=== PATIENT | female | born 1950 | race Caucasian/White ===

== ENCOUNTER 2017-04-19 00:37 | Observation (INO) | payer MEDICARE, OTHER ==
[2017-04-19 01:26] LABS: Anisocytosis Slight; Basophils % (A) 1 %; CH 24.3; CHCM 29.8; Eosinophils # (A) 0.3 k/uL (0-0.7); Eosinophils % (A) 6 %; HCT 34.5 % (34.0-46.0); HGB 10.3 gm/dL (11.4-16.0); Hypochromasia Marked; Luc % (Auto) 2; Lymphocytes # (A) 1.2 k/uL (1.0-4.8); Lymphocytes % (A) 26 %; MCH 24.4 pg (25.0-35.0); MCHC 29.8 g/dL (31.0-37.0); MCV 81.8 fL (80.0-100.0); Mean Platelet Volume 8.2; Monocytes # (A) 0.3 k/uL (0-1.0); Monocytes % (A) 7 %; Neutrophils # (A) 2.8 k/uL (1.3-7.7); Neutrophils % (A) 59 %; RBC 4.22 m/uL (3.80-5.40); RDW 17.1 % (11.5-15.5); WBC 4.8 k/uL (3.8-10.6); WBC (Perox) 5.13
[2017-04-19 01:35] LABS: Partial Thromboplastin Time 22.5 sec (22.0-30.0); Prothrombin Time 10.4 sec (9.0-12.0)
[2017-04-19] MEDS ORDERED: ALBUTEROL NEBULIZED 2.5 MG/3 ML INHALATION STA (01:37)
[2017-04-19 01:39] LABS: ALT 24 U/L (9-52); AST 21 U/L (14-36); Alkaline Phosphatase 98 U/L (38-126); Anion Gap 6 mmol/L; Blood Urea Nitrogen 17 mg/dL (7-17); Calcium 10.4 mg/dL (8.4-10.2); Carbon Dioxide 23 mmol/L (22-30); Chloride 112 mmol/L (98-107); Glucose 109 mg/dL (74-99); Non-African American GFR(MDRD) >60 (>60 ml/min/1.73 sqM); Potassium 4.7 mmol/L (3.5-5.1); Sodium 141 mmol/L (137-145); Total Bilirubin 0.4 mg/dL (0.2-1.3); Total Protein 6.1 g/dL (6.3-8.2)
[2017-04-19 01:42] LABS: Creatine Kinase 25 U/L (30-135)
--- NOTE | 2017-04-19 01:48 | XR ---
EXAMINATION TYPE: XR chest 1V portable DATE OF EXAM: 04/19/2017 COMPARISON: 07/04/2015 HISTORY: Short of breath TECHNIQUE: Single frontal view of the chest is obtained. FINDINGS: Heart and mediastinum are normal. Lungs are clear. Diaphragm is normal. There are chest le ads. Bony thorax is intact. IMPRESSION: Normal chest. No change. Old left rib fracture is noted.
[2017-04-19 01:56] LABS: Creatine Kinase MB 0.5 ng/mL (0.0-2.4); Troponin I <0.012 ng/mL (0.000-0.034)
--- NOTE | 2017-04-19 02:51 | ED ---
SOB HPI - General Chief Complaint: Shortness of Breath Stated Complaint: SOB Time Seen by Provider: 04/19/17 00:47 Source: patient, family Mode of arrival: EMS Limitations: physical limitation - History of Present Illness Initial Comments: This patient is a 66-year-old woman who presents to be valid for shortness of breath that is been getting progressively worse over the past 3 days. She states she is also having a nonproductive cough and noted some wheezing. Patient does relate that she has history of COPD. She states that her home medicines are not helping. Patient denies fever or chills. She denies sputum production. She has some chest tightness. There is no diaphoresis, nausea or vomiting. MD Complaint: shortness of breath, cough Onset/Timin -: days(s) Severity: moderate Consistency: constant Improves With: nothing Worsens With: nothing Known History Of: COPD - Related Data Home Medications Medication Instructions Recorded Confirmed Albuterol Nebulized [Ventolin 2.5 mg INHALATION RT-Q6H PRN 04/19/17 04/19/17 Nebulized] Apixaban [Eliquis] 5 mg PO BID 04/19/17 04/19/17 Furosemide [Lasix] 40 mg PO DAILY 04/19/17 04/19/17 Ipratropium/Albuterol Sulfate 2 puff INHALATION RT-DAILY PRN 04/19/17 04/19/17 [Combivent Respimat Inhaler] Lisinopril [Zestril] 20 mg PO DAILY 04/19/17 04/19/17 Previous Rx's Medication Instructions Recorded Budesonide-Formot 160-4.5 Mcg 2 puff INHALATION BID #1 inhaler 04/19/17 [Symbicort 160-4.5 Mcg Inhaler] Doxycycline Monohydrate [Monodox] 100 mg PO Q12HR #10 cap 04/19/17 predniSONE 10 mg PO DAILY #30 tab 04/19/17 Allergies Allergy/AdvReac Type Severity Reaction Status Date / Time erythromycin base Allergy Rash/Hives Verified 04/19/17 11:20 [Erythromycin Base] gentamicin [Gentamicin] Allergy Rash/Hives Verified 04/19/17 11:20 Penicillins Allergy Anaphylaxis Verified 04/19/17 11:20 Review of Systems ROS Statement: Those systems with pertinent positive or pertinent negative responses have been documented in the HPI. ROS Other: All systems not noted in ROS Statement are negative. Constitutional: Denies: fever, chills Respiratory: Reports: cough, dyspnea, wheezes. Denies: hemoptysis Cardiovascular: Denies: chest pain, palpitations, orthopnea, edema, syncope Gastrointestinal: Denies: abdominal pain, nausea, vomiting Genitourinary: Denies: dysuria, hematuria Musculoskeletal: Denies: back pain Skin: Denies: rash Neurological: Denies: headache, weakness, numbness Past Medical History Past Medical History: Asthma, Coronary Artery Disease (CAD), Chest Pain / Angina , GERD/Reflux, Hypertension, Hypertension, Neurologic Disorder, Osteoarthritis ( OA), Renal Disease, Thyroid Disorder Additional Past Medical History / Comment(s): anemia. vericose veins. pulmonary embolus, DVT. wounds reji legs with. perpheral neuropathy , back and bilat knee spurs History of Any Multi-Drug Resistant Organisms: None Reported Past Surgical History: Hernia Repair, Tonsillectomy, Tubal Ligation, Tubal Ligation Additional Past Surgical History / Comment(s): BLOOD CLOTS REMOVED FROM LEFT LEG Past Anesthesia/Blood Transfusion Reactions: No Reported Reaction Past Psychological History: Panic Disorder Smoking Status: Never smoker Past Alcohol Use History: None Reported Past Drug Use History: None Reported - Past Family History Mother Family Medical History: No Reported History Daughter(s) Family Medical History: Cancer Additional Family Medical History / Comment(s): cervical Son(s) Family Medical History: CVA/TIA General Exam Limitations: physical limitation General appearance: alert, in no apparent distress Head exam: Present: atraumatic, normocephalic Eye exam: Present: normal appearance. Absent: scleral icterus, conjunctival injection Neck exam: Present: normal inspection, full ROM Respiratory exam: Present: wheezes. Absent: respiratory distress, rales, rhonchi, stridor, decreased breath sounds, prolonged expiratory Cardiovascular Exam: Present: regular rate, normal rhythm, normal heart sounds. Absent: systolic murmur, diastolic murmur, rubs, gallop GI/Abdominal exam: Present: soft. Absent: distended, tenderness, guarding, rebound, rigid Extremities exam: Present: normal capillary refill, other (Patient has chronic lymphedema changes to the left lower extremity. No Homans sign. No palpable cord or tenderness, however the exam is limited). Absent: calf tenderness Back exam: Present: normal inspection. Absent: CVA tenderness (R), CVA tenderness (L) Neurological exam: Present: alert Skin exam: Present: warm, dry, intact, normal color. Absent: rash Course Vital Signs 04/19/17 04/19/17 04/19/17 00:45 01:51 EDT 02:00 Temperature 97.8 F 97.6 F Pulse Rate 71 66 Respiratory 26 H 20 24 Rate Blood Pressure 198/80 177/75 O2 Sat by Pulse 99 Oximetry 04/19/17 04/19/17 04/19/17 02:17 02:21 02:24 Temperature Pulse Rate 65 64 68 Respiratory 16 19 16 Rate Blood Pressure 182/75 O2 Sat by Pulse 99 Oximetry 04/19/17 03:39 Temperature Pulse Rate 68 Respiratory 18 Rate Blood Pressure 155/67 O2 Sat by Pulse 97 Oximetry Medical Decision Making - Medical Decision Making Patient's 66-year-old woman with COPD exacerbation. She does have chronic lymphedema of the left leg. Patient be admitted for treatment of COPD and also to have VQ scan to rule out a pulmonary embolus. The patient is currently taking eliquis. - Lab Data Result diagrams: 04/19/17 00:56 04/19/17 00:56 Lab Results 04/19/17 04/19/17 04/19/17 Range/Units 00:56 00:56 00:56 WBC 4.8 (3.8-10.6) k/uL RBC 4.22 (3.80-5.40) m/uL Hgb 10.3 L (11.4-16.0) gm/dL Hct 34.5 (34.0-46.0) % MCV 81.8 (80.0-100.0) fL MCH 24.4 L (25.0-35.0) pg MCHC 29.8 L (31.0-37.0) g/dL RDW 17.1 H (11.5-15.5) % Plt Count 155 (150-450) k/uL Neutrophils % 59 % Lymphocytes % 26 % Monocytes % 7 % Eosinophils % 6 % Basophils % 1 % Neutrophils # 2.8 (1.3-7.7) k/uL Lymphocytes # 1.2 (1.0-4.8) k/uL Monocytes # 0.3 (0-1.0) k/uL Eosinophils # 0.3 (0-0.7) k/uL Basophils # 0.0 (0-0.2) k/uL Hypochromasia Marked Anisocytosis Slight PT (9.0-12.0) sec INR (<1.2) APTT (22.0-30.0) sec Sodium 141 (137-145) mmol/L Potassium 4.7 (3.5-5.1) mmol/L Chloride 112 H (98-107) mmol/L Carbon Dioxide 23 (22-30) mmol/L Anion Gap 6 mmol/L BUN 17 (7-17) mg/dL Creatinine 0.90 (0.52-1.04) mg/dL Est GFR (MDRD) Af Amer >60 (>60 ml/min/1.73 sqM) Est GFR (MDRD) Non-Af >60 (>60 ml/min/1.73 sqM) Glucose 109 H (74-99) mg/dL Calcium 10.4 H (8.4-10.2) mg/dL Total Bilirubin 0.4 (0.2-1.3) mg/dL AST 21 (14-36) U/L ALT 24 (9-52) U/L Alkaline Phosphatase 98 (38-126) U/L Total Creatine Kinase 25 L (30-135) U/L CK-MB (CK-2) 0.5 (0.0-2.4) ng/mL CK-MB (CK-2) Rel Index 2.0 Troponin I <0.012 (0.000-0.034) ng/mL NT-Pro-B Natriuret Pep pg/mL Total Protein 6.1 L (6.3-8.2) g/dL Albumin 3.3 L (3.5-5.0) g/dL 04/19/17 04/19/17 Range/Units 00:56 00:56 WBC (3.8-10.6) k/uL RBC (3.80-5.40) m/uL Hgb (11.4-16.0) gm/dL Hct (34.0-46.0) % MCV (80.0-100.0) fL MCH (25.0-35.0) pg MCHC (31.0-37.0) g/dL RDW (11.5-15.5) % Plt Count (150-450) k/uL Neutrophils % % Lymphocytes % % Monocytes % % Eosinophils % % Basophils % % Neutrophils # (1.3-7.7) k/uL Lymphocytes # (1.0-4.8) k/uL Monocytes # (0-1.0) k/uL Eosinophils # (0-0.7) k/uL Basophils # (0-0.2) k/uL Hypochromasia Anisocytosis PT 10.4 (9.0-12.0) sec INR 1.0 (<1.2) APTT 22.5 (22.0-30.0) sec Sodium (137-145) mmol/L Potassium (3.5-5.1) mmol/L Chloride (98-107) mmol/L Carbon Dioxide (22-30) mmol/L Anion Gap mmol/L BUN (7-17) mg/dL Creatinine (0.52-1.04) mg/dL Est GFR (MDRD) Af Amer (>60 ml/min/1.73 sqM) Est GFR (MDRD) Non-Af (>60 ml/min/1.73 sqM) Glucose (74-99) mg/dL Calcium (8.4-10.2) mg/dL Total Bilirubin (0.2-1.3) mg/dL AST (14-36) U/L ALT (9-52) U/L Alkaline Phosphatase (38-126) U/L Total Creatine Kinase (30-135) U/L CK-MB (CK-2) (0.0-2.4) ng/mL CK-MB (CK-2) Rel Index Troponin I (0.000-0.034) ng/mL NT-Pro-B Natriuret Pep 386 pg/mL Total Protein (6.3-8.2) g/dL Albumin (3.5-5.0) g/dL Disposition Clinical Impression: Acute exacerbation of chronic obstructive airways disease, Shortness of breath , Lymphedema Disposition: ADMITTED IP TO THIS HOSP Condition: Fair
[2017-04-19] MEDS ORDERED: MORPHINE SULFATE 2 MG/ML SYRINGE IV STA (03:13)
[2017-04-19 04:08] VITALS: BMI 55.7
[2017-04-19 07:12] VITALS: BP 138/63; RESP 20; TEMP 97.5
[2017-04-19] MEDS ORDERED: LISINOPRIL 20 MG TAB PO SCH (09:00)
[2017-04-19] MEDS ORDERED: predniSONE 20 MG TAB PO SCH (09:00)
[2017-04-19] MEDS ORDERED: FUROSEMIDE 40 MG TAB PO SCH (09:00)
[2017-04-19] MEDS ORDERED: APIXABAN 5 MG TAB PO SCH (09:00)
--- NOTE | 2017-04-19 09:04 | NM ---
EXAMINATION TYPE: NM pul vent and perfuse DATE OF EXAM: 04/19/2017 COMPARISON: Chest x-ray dated 04/19/2017. HISTORY: Shortness of breath. TECHNIQUE: Utilizing inhalation of 73.2 mCi Tc 99m DTPA aerosol and intravenous injection of 5.3 mCi of Tc 99m MAA, ventilation and perfusion images are acquired post injection in multiple projections. FINDINGS: There are matched defects in the upper lobes bilaterally. There are no VQ mismatches. IMPRESSION: THIS EXAMINATION IS LOW PROBABILITY FOR PULMONARY EMBOLUS.
[2017-04-19] MEDS: IPRATROPIUM-ALBUTEROL 3 ML NEB INHALATION SCH ×2 (09:15→12:12)
--- NOTE | 2017-04-19 11:14 | P.HPIM ---
History of Present Illness Patient history of COPD uses 2 L of onset at home came in with compensative shortness of breath which or 3 days ago. With nonproductive cough chest x-ray did not show any pneumonic process patient is otherwise clinically doing well patient has a left lower limb lymphedema chronic for which patient has an Billy bandage it doesn't appear to be infected. Patient denied any fever chills patient chest x-ray did not show any pneumonic process. Patient the is clinically doing well saturating well almost 100% on 2 L at rest. Patient will be discharged on weaning dose of prednisone, Symbicort along with alcohol withdrawal ipratropium she already has at home. Patient will be given prescription for doxycycline as well. Review of Systems REVIEW OF SYSTEMS: CONSTITUTIONAL: No fever, no malaise, no fatigue. HEENT: No recent visual problems or hearing problems. Denied any sore throat. CARDIOVASCULAR: No chest pain, orthopnea, PND, no palpitations, no syncope. PULMONARY: no hemoptysis. GASTROINTESTINAL: No diarrhea, no nausea, no vomiting, no abdominal pain. Normoactive bowel sounds. NEUROLOGICAL: No headaches, no weakness, no numbness. HEMATOLOGICAL: Denies any bleeding or petechiae. GENITOURINARY: Denies any burning micturition, frequency, or urgency. MUSCULOSKELETAL/RHEUMATOLOGICAL: Denies any joint pain, swelling, or any muscle pain. ENDOCRINE: Denies any polyuria or polydipsia. The rest of the 14-point review of systems is negative. Past Medical History Past Medical History: Asthma, Coronary Artery Disease (CAD), Chest Pain / Angina , GERD/Reflux, Hypertension, Hypertension, Neurologic Disorder, Osteoarthritis ( OA), Renal Disease, Thyroid Disorder Additional Past Medical History / Comment(s): anemia. vericose veins. pulmonary embolus, DVT. wounds reji legs with. perpheral neuropathy , back and bilat knee spurs History of Any Multi-Drug Resistant Organisms: None Reported Past Surgical History: Hernia Repair, Tonsillectomy, Tubal Ligation, Tubal Ligation Additional Past Surgical History / Comment(s): BLOOD CLOTS REMOVED FROM LEFT LEG Past Anesthesia/Blood Transfusion Reactions: No Reported Reaction Past Psychological History: Panic Disorder Smoking Status: Never smoker Past Alcohol Use History: None Reported Past Drug Use History: None Reported - Past Family History Mother Family Medical History: No Reported History Daughter(s) Family Medical History: Cancer Additional Family Medical History / Comment(s): cervical Son(s) Family Medical History: CVA/TIA Medications and Allergies Home Medications Medication Instructions Recorded Confirmed Type Albuterol Nebulized [Ventolin 2.5 mg INHALATION PRN 04/19/17 History Nebulized] Apixaban [Eliquis] 5 mg PO DAILY 04/19/17 04/19/17 History Budesonide-Formot 160-4.5 Mcg 2 puff INHALATION BID #1 inhaler 04/19/17 Rx [Symbicort 160-4.5 Mcg Inhaler] Doxycycline Monohydrate [Monodox] 100 mg PO Q12HR #10 cap 04/19/17 Rx Furosemide [Lasix] 40 mg PO DAILY 04/19/17 04/19/17 History Ipratropium/Albuterol Sulfate 04/19/17 History [Combivent Respimat Inhaler] Lisinopril [Zestril] 20 mg PO DAILY 04/19/17 04/19/17 History predniSONE 10 mg PO DAILY #30 tab 04/19/17 Rx Allergies Allergy/AdvReac Type Severity Reaction Status Date / Time erythromycin base Allergy Rash/Hives Verified 04/19/17 00:45 [Erythromycin Base] gentamicin [Gentamicin] Allergy Rash/Hives Verified 04/19/17 00:45 Penicillins Allergy Anaphylaxis Verified 04/19/17 00:45 Physical Exam Vitals: Vital Signs Temp Pulse Pulse Resp BP BP Pulse Ox 04/19/17 09:54 68 20 04/19/17 09:24 70 04/19/17 09:17 66 100 04/19/17 07:00 97.5 F L 68 20 138/63 99 04/19/17 04:18 97.8 F 68 17 168/73 99 04/19/17 04:15 18 04/19/17 03:39 68 18 155/67 97 04/19/17 02:24 68 16 04/19/17 02:21 64 19 182/75 99 04/19/17 02:17 65 16 04/19/17 02:00 24 04/19/17 01:51 EDT 97.6 F 66 20 177/75 99 04/19/17 00:45 97.8 F 71 26 H 198/80 Intake and Output 04/18/17 04/19/17 04/19/17 23:59 06:59 14:59 Intake Total 10 Balance 10 Intake: IV 10 Invasive Line 1 10 Oral Other: Voiding Method Bedside Commode Weight PHYSICAL EXAMINATION: GENERAL: The patient is alert and oriented x3, not in any acute distress. Well developed, well nourished. HEENT: Pupils are round and equally reacting to light. EOMI. No scleral icterus. No conjunctival pallor. Normocephalic, atraumatic. No pharyngeal erythema. No thyromegaly. CARDIOVASCULAR: S1 and S2 present. No murmurs, rubs, or gallops. PULMONARY: Chest is clear to auscultation, no wheezing or crackles. ABDOMEN: Soft, nontender, nondistended, normoactive bowel sounds. No palpable organomegaly. MUSCULOSKELETAL: No joint swelling or deformity. EXTREMITIES: No cyanosis, clubbing, or pedal edema. NEUROLOGICAL: Gross neurological examination did not reveal any focal deficits. SKIN: No rashes. Results CBC & Chem 7: 04/19/17 00:56 04/19/17 00:56 Labs: Abnormal Lab Results - Last 24 Hours (Table) 04/19/17 04/19/17 04/19/17 Range/Units 00:56 00:56 00:56 Hgb 10.3 L (11.4-16.0) gm/dL MCH 24.4 L (25.0-35.0) pg MCHC 29.8 L (31.0-37.0) g/dL RDW 17.1 H (11.5-15.5) % Chloride 112 H (98-107) mmol/L Glucose 109 H (74-99) mg/dL Calcium 10.4 H (8.4-10.2) mg/dL Total Creatine Kinase 25 L (30-135) U/L Total Protein 6.1 L (6.3-8.2) g/dL Albumin 3.3 L (3.5-5.0) g/dL Thrombosis Risk Factor Assmnt - Choose All That Apply Each Factor Represents 1 point: Abnormal pulmonary function (COPD), Obesity ( BMI >25) Each Risk Factor Represents 2 Points: Age 61-74 years Each Risk Factor Represents 3 Points: History of DVT/PE Thrombosis Risk Factor Assessment Total Risk Factor Score: 7 Thrombosis Risk Factor Assessment Level: High Risk Assessment and Plan Plan: #COPD and asthma exacerbation patient has chronic hypercapnic respiratory failure secondary to COPD and the patient is clinically doing well saturating well can be discharged on oral steroids. She appears to have an anxiety episode rather than actual COPD exacerbation. #2 coronary artery disease #3 hypertension #4 hyperlipidemia #5 hypothyroidism #6 left lower limb chronic lymphedema because of which patient mostly stays at home. #7 history of PE for which patient is on anti-correlation which Will be continued as an gastroesophageal reflux disease Omission chronic medical problems patient will continued on home medications.
--- NOTE | 2017-04-19 11:15 | P.DS ---
Providers Date of admission: 04/19/17 02:47 Attending physician: Ruben Garcia Primary care physician: Gina Maciel [facility] Course: As mentioned in HPI Patient Condition at Discharge: Fair Plan - Discharge Summary New Discharge Prescriptions: New Budesonide-Formot 160-4.5 Mcg [Symbicort 160-4.5 Mcg Inhaler] 2 puff INHALATION BID #1 inhaler predniSONE 10 mg PO DAILY #30 tab Doxycycline Monohydrate [Monodox] 100 mg PO Q12HR #10 cap No Action Apixaban [Eliquis] 5 mg PO DAILY Lisinopril [Zestril] 20 mg PO DAILY Furosemide [Lasix] 40 mg PO DAILY Ipratropium/Albuterol Sulfate [Combivent Respimat Inhaler] Albuterol Nebulized [Ventolin Nebulized] 2.5 mg INHALATION PRN PRN Reason: Wheezing Discharge Medication List Albuterol Nebulized [Ventolin Nebulized] 2.5 mg INHALATION PRN 04/19/17 [History ] Apixaban [Eliquis] 5 mg PO DAILY 04/19/17 [History] Budesonide-Formot 160-4.5 Mcg [Symbicort 160-4.5 Mcg Inhaler] 2 puff INHALATION BID #1 inhaler 04/19/17 [Rx] Doxycycline Monohydrate [Monodox] 100 mg PO Q12HR #10 cap 04/19/17 [Rx] Furosemide [Lasix] 40 mg PO DAILY 04/19/17 [History] Ipratropium/Albuterol Sulfate [Combivent Respimat Inhaler] 04/19/17 [History] Lisinopril [Zestril] 20 mg PO DAILY 04/19/17 [History] predniSONE 10 mg PO DAILY #30 tab 04/19/17 [Rx] Follow up Appointment(s)/Referral(s): Gina Maciel MD [Primary Care Provider] - 3 Days Patient Instructions/Handouts: Doxycycline (By mouth), Prednisone (By mouth), Budesonide/Formoterol (By breathing), COPD (Chronic Obstructive Pulmonary Disease) (DC), Dyspnea (GEN), Hypertension (DC), Lymphedema (DC) Discharge Disposition: HOME SELF-CARE
[2017-04-19 12:23] VITALS: PULSE 66
== END 2017-04-19 13:15 | disposition home or self-care (01) ==
LOC: EC 00:37 → 5MS5E 02:47
PROVIDERS: ADMIT Hospitalist; ATTEND Hospitalist
DX: J44.1 Chronic obstructive pulmonary disease with (acute) exacerbation (principal); J45.901 Unspecified asthma with (acute) exacerbation; J96.12 Chronic respiratory failure with hypercapnia; I25.10 Atherosclerotic heart disease of native coronary artery without angina pectoris; I10 Essential (primary) hypertension; E78.5 Hyperlipidemia, unspecified; E03.9 Hypothyroidism, unspecified; I89.0 Lymphedema, not elsewhere classified; Z86.711 Personal history of pulmonary embolism; Z86.718 Personal history of other venous thrombosis and embolism; Z99.81 Dependence on supplemental oxygen; Z79.899 Other long term (current) drug therapy; Z79.01 Long term (current) use of anticoagulants; Z79.51 Long term (current) use of inhaled steroids; Z88.1 Allergy status to other antibiotic agents; Z88.0 Allergy status to penicillin; E66.9 Obesity, unspecified; Z68.43 Body mass index [BMI] 50.0-59.9, adult
CPT/HCPCS: 99285; 96374; 36415; 94640 ×2; 94760; 93005; 83880; 80053; 82550; 82553; 84484; 85025; 85610; 85730; 71010; 78582; G0378; A9540; A9567; J2270; J7512

== ENCOUNTER 2019-10-14 10:25 | Inpatient (IN) | payer MEDICARE, OTHER ==
[2019-10-14 12:44] LABS: Glucose,Whole Blood 103 mg/dL (75-99)
[2019-10-14 14:19] LABS: Anisocytosis Slight; Basophils % (A) 1 %; Eosinophils # (A) 0.1 k/uL (0-0.7); Eosinophils % (A) 2 %; HCT 31.2 % (34.0-46.0); HGB 9.3 gm/dL (11.4-16.0); Hypochromasia Marked; Lymphocytes # (A) 0.4 k/uL (1.0-4.8); Lymphocytes % (A) 8 %; MCH 24.6 pg (25.0-35.0); MCHC 29.9 g/dL (31.0-37.0); MCV 82.5 fL (80.0-100.0); Mean Platelet Volume 9.7; Monocytes # (A) 0.5 k/uL (0-1.0); Monocytes % (A) 9 %; Neutrophils # (A) 4.2 k/uL (1.3-7.7); Neutrophils % (A) 78 %; Platelet Count 119 k/uL (150-450); RBC 3.78 m/uL (3.80-5.40); RDW 17.4 % (11.5-15.5); WBC 5.4 k/uL (3.8-10.6)
[2019-10-14] MEDS ORDERED: hydrALAZINE HCL 20 MG/ML 1 ML VIAL IM PRN (14:22)
[2019-10-14] MEDS ORDERED: SODIUM CHLORIDE 0.9% 1,000 ML IV SCH (14:30)
[2019-10-14 14:32] LABS: Lactic Acid, Venous 0.7 mmol/L (0.7-2.0)
[2019-10-14 14:49] LABS: Potassium 3.3 mmol/L (3.5-5.1)
[2019-10-14 14:50] LABS: Albumin 2.2 g/dL (3.5-5.0); Calcium 9.7 mg/dL (8.4-10.2); Total Bilirubin 0.5 mg/dL (0.2-1.3); Total Protein 5.2 g/dL (6.3-8.2)
--- NOTE | 2019-10-14 14:50 | XR ---
EXAMINATION TYPE: XR chest 1V portable DATE OF EXAM: 10/14/2019 COMPARISON: 04/19/2017 HISTORY: Dyspnea TECHNIQUE: Single frontal view of the chest is obtained. FINDINGS: There is an enlarged cardiac mediastinal silhouette. No new focal consolidation, pleural e ffusion or pneumothorax. Linear minimal bibasilar atelectasis is seen. Old healed left rib fracture i s better visualized on the prior partially obscured by an overlying lead on today's exam. Low lung vo lumes are seen. IMPRESSION: Minimal bibasilar subsegmental atelectasis and low lung volumes. Otherwise no acute proc ess.
[2019-10-14] MEDS ORDERED: HEPARIN SODIUM,PORCINE 5,000 UNIT/ML 1 ML VIAL SQ SCH (16:00)
[2019-10-14 16:44] LABS: Glucose,Whole Blood 109 mg/dL (75-99)
[2019-10-14] MEDS: PANTOPRAZOLE 40 MG/10 ML VIAL IVP SCH (17:26)
[2019-10-14] MEDS: CEFEPIME 1 GM in SODIUM CHLORIDE 0.9% 50 ML IVPB SCH ×2 (17:27→22:05)
[2019-10-14 20:07] LABS: Glucose,Whole Blood 119 mg/dL (75-99)
[2019-10-14] MEDS: FUROSEMIDE 10 MG/ML 2 ML VIAL IV SCH (22:05)
[2019-10-14 23:31] LABS: Glucose,Whole Blood 106 mg/dL (75-99)
[2019-10-14 23:59] LABS: ABG Base Excess -3.3 mmol/L; ABG HCO3 21 mmol/L (21-25); ABG Oxygen Saturation 99.5 % (94-97); ABG PCO2 33 mmHg (35-45); ABG PH 7.42 (7.35-7.45); ABG PO2 167 mmHg (83-108); ABG TCO2 22 mmol/L (19-24); Allen Test Performed? Yes
[2019-10-15 00:46] LABS: Anisocytosis Slight; HCT 32.6 % (34.0-46.0); HGB 9.7 gm/dL (11.4-16.0); Hypochromasia Marked; MCH 24.4 pg (25.0-35.0); MCHC 29.7 g/dL (31.0-37.0); MCV 82.2 fL (80.0-100.0); Mean Platelet Volume 7.7; Platelet Count 116 k/uL (150-450); RBC 3.97 m/uL (3.80-5.40); RDW 17.3 % (11.5-15.5); WBC 5.7 k/uL (3.8-10.6)
[2019-10-15 00:47] LABS: Glucose,Whole Blood 104 mg/dL (75-99)
--- NOTE | 2019-10-15 00:49 | CT ---
EXAMINATION TYPE: CT brain wo con DATE OF EXAM: 10/15/2019 COMPARISON: 11/24/2012 HISTORY: rule out bleed CT DLP: 1213.4 mGycm Automated exposure control for dose reduction was used. Ventricles of normal size. There is no mass effect nor midline shift. There is no sign of intracrania l hemorrhage. Calvarium is intact. There is no evidence of cerebral edema. IMPRESSION: Negative unenhanced head CT scan. No change.
[2019-10-15] MEDS ORDERED: HEPARIN SODIUM,PORCINE 5,000 UNIT/ML 1 ML VIAL IV PRN (00:53)
[2019-10-15] MEDS ORDERED: HEPARIN SOD,PORK IN 0.45% NACL 25,000 UNIT in 0.45% NACL 1 250ML.BAG IV SCH (01:00)
[2019-10-15 01:01] LABS: Lactic Acid, Venous 0.9 mmol/L (0.7-2.0)
[2019-10-15 01:02] LABS: Albumin 2.5 g/dL (3.5-5.0); Calcium 10.2 mg/dL (8.4-10.2); Potassium 3.3 mmol/L (3.5-5.1); Total Bilirubin 0.6 mg/dL (0.2-1.3); Total Protein 5.6 g/dL (6.3-8.2)
[2019-10-15] MEDS: SODIUM CHLORIDE 0.9% 1,000 ML IV SCH (01:15)
[2019-10-15] MEDS ORDERED: SODIUM CHLORIDE 0.9% 500 ML 500 ML IV SCH (01:30)
[2019-10-15] MEDS: hydrALAZINE HCL 20 MG/ML 1 ML VIAL IVP PRN ×2 (02:46→09:46)
--- NOTE | 2019-10-15 06:03 | CONS ---
CONSULTATION DATE OF SERVICE: 10/14/2019 REASON FOR CONSULTATION: Left lower extremity cellulitis. HISTORY OF PRESENT ILLNESS: The patient is a 69-year-old female who was recently admitted at [facility]. The patient presented with left lower extremity swelling and redness. She was diagnosed with left lower extremity cellulitis. The patient was started on vancomycin and cefepime, vancomycin subsequently discontinued. She was continued on cefepime. The patient left leg swelling and redness improved. The patient was afebrile. White count was normal. However, the patient started having mental status changes. The patient remains to be pleasantly confused, unable to provide any history. Subsequently the patient has been transferred to [facility] to be evaluated by neurology service. I was asked to see the patient for continued followup left lower extremity cellulitis. Since presentation to the hospital, the patient has been afebrile. The patient did have a normal white count 5.4. The patient creatinine is 1.85. Troponin has been elevated. The patient remains to be slightly lethargic and is unable to provide any history. Most information has been obtained from review of the chart. REVIEW OF SYSTEMS: Could not be reliably obtained the positive points have been mentioned in HPI. PAST MEDICAL HISTORY: Coronary artery disease, gastroesophageal reflux disease, chronic lymphedema to left leg and cellulitis, hypertension, hyperlipidemia, osteoarthritis, hypothyroidism. PAST SURGICAL HISTORY: The past surgical history includes hernia repair, tonsillectomy, tubal ligation and blood clot removed from the left leg. SOCIAL HISTORY: No history of smoking, drinking or drug use. FAMILY HISTORY: Father history of CVA and TIA. ALLERGIES: Allergies to ERYTHROMYCIN, GENTAMICIN, PENICILLIN. However has tolerated cephalosporin without any problem. MEDICATIONS: Currently include the patient on: Cefepime 1 gram q.12 hours. She is on Lasix, heparin hydralazine, Protonix and IV fluid. PHYSICAL EXAMINATION: On examination, her blood pressure is 194/84 with a pulse of 101. Temperature 97.9. She is 96% on 3 L nasal cannula. General description is an elderly female lying in bed in no distress. No tachypnea or accessory muscle of respiration use. HEENT examination slight pallor. No scleral icterus. Oral mucous membranes dry. NECK: Trachea central. No thyromegaly. LUNGS unlabored breathing. Clear to auscultation anteriorly. No wheeze or crackles. HEART S1, S2. Regular rate and rhythm. No tenderness. EXTREMITIES: Left leg swelling persists though redness has improved. No open wound or any drainage. NEUROLOGIC: The patient remains to be lethargic. Orientation could not be determined. LABS: Hemoglobin 9.2, white count 5.4 with a BUN of 32, creatinine 1.85. Potassium 3.3. DIAGNOSTIC IMPRESSION AND PLAN: 1. Patient with acute left lower extremity cellulitis that seems to have shown clinical improvement on cefepime which will be continued. 2. Patient with acute mental status changes for which the patient has been not explained on any infectious etiology in this patient with no fever or elevated white count and cellulitis, improving. The patient UA and culture were negative at the other facility. PLAN: 1. Cefepime 1 gram q.12 hours to continue. 2. We will check a UA and cultures. 3. We will check CRP and sedimentation rate. 4. We will follow up on clinical condition and further adjust medication if needed. Thank you for this consultation. Will follow this patient along with you. MMODL / IJN: [id number] /
[2019-10-15 06:15] LABS: Anisocytosis Slight; Basophils % (A) 0 %; Eosinophils # (A) 0.1 k/uL (0-0.7); Eosinophils % (A) 2 %; HCT 33.2 % (34.0-46.0); Hypochromasia Marked; Lymphocytes # (A) 0.6 k/uL (1.0-4.8); Lymphocytes % (A) 13 %; MCH 24.7 pg (25.0-35.0); MCV 82.4 fL (80.0-100.0); Mean Platelet Volume 9.1; Monocytes # (A) 0.4 k/uL (0-1.0); Monocytes % (A) 9 %; Neutrophils # (A) 3.4 k/uL (1.3-7.7); Neutrophils % (A) 74 %; Platelet Count 120 k/uL (150-450); RBC 4.03 m/uL (3.80-5.40); RDW 16.9 % (11.5-15.5); WBC 4.6 k/uL (3.8-10.6)
[2019-10-15 06:37] LABS: Calcium 9.9 mg/dL (8.4-10.2); Potassium 3.3 mmol/L (3.5-5.1)
[2019-10-15 07:51] LABS: C Reactive Protein 186.9 mg/L (<10.0)
[2019-10-15 08:10] LABS: Erythrocyte Sedimentation Rate 92 mm/hr (0-20)
[2019-10-15] MEDS: FUROSEMIDE 10 MG/ML 2 ML VIAL IV SCH (08:28)
[2019-10-15] MEDS: PANTOPRAZOLE 40 MG/10 ML VIAL IVP SCH (08:28)
--- NOTE | 2019-10-15 10:27 | HP ---
HISTORY AND PHYSICAL 69-year-old white female who has been treated for cellulitis of the leg over at [facility], transferred over to the other hospital due to delirium and altered mental status and significant nature in which she would not wake up. She was mumbling over and over mumbling and semicomatose state. For neurologic evaluation, we were progress that would see her on the day of transfer 10/14/2019 and do not see any notes in the chart from her, however. The patient worsening respiratory status. Apparently may have been transferred to the ICU overnight. REVIEW OF SYSTEMS: 14 point review of systems unobtainable. PAST MEDICAL HISTORY: Coronary artery disease, GERD, chronic lymphedema of the left leg with severe cellulitis, hypertension, osteoarthritis, hypothyroidism, dyslipidemia. PAST SURGICAL HISTORY: She had tubal ligation. Tonsillectomy, hernia repair, blood clot from left leg. SOCIAL HISTORY: No smoking, drinking alcohol. FAMILY HISTORY: CVA and TIA. ALLERGIES: ERYTHROMYCIN, GENTAMICIN, PENICILLIN. She has tolerated cephalosporins and without any problems. MEDICINES: Lasix, Heparin, hydralazine, Protonix, cefepime. PHYSICAL EXAMINATION: VITAL SIGNS: Blood pressure is 190s over 80s, pulse 101, temperature 98.7, O2 96 on 3 L. GENERAL: Appears to be in some mild respiratory distress. HEENT some mild pallor. Trachea is central. No thyromegaly. LUNGS: Increase respiratory rate, mostly clear. HEART S1, S2. ABDOMEN is distended, obesity. NEUROLOGIC lethargic, alert, oriented x0. Mostly obtunded. Just mumbles words when asked questions. EXTREMITIES show left leg swelling persists. Redness is improving. She had minimal opening wound at the flexor surface of the left leg, but apparently that is healing. LABORATORY DATA: Hemoglobin is 9.2, white count 5.4, BUN 32, creatinine 1.85. CT scan is negative for any intracranial bleed. ASSESSMENT: 1. Delirium, altered mental status. Possible cerebrovascular accident. May need an MRI as CT scans are negative. Waiting for neurology recommendations. 2. Cellulitis. 3. Urinalysis, urine cultures are negative. Continue with cefepime. Wait for Neurology recommendations and pulmonology Dr. Hagen has taken over and get Infectious Disease consult. Prognosis extremely guarded. MMODL / IJN: [id number] /
[2019-10-15] MEDS ORDERED: FLUCONAZOLE IN NACL,ISO-OSM 100 MG in SALINE 1 50ML.BAG IVPB SCH (10:30)
--- NOTE | 2019-10-15 10:33 | US ---
EXAMINATION TYPE: US venous doppler duplex LE DATE OF EXAM: 10/15/2019 9:52 AM COMPARISON: Previous study dated 12/11/2011. CLINICAL HISTORY: R/O DVT. Poor historian. ICU patient. On heparin. SIDE PERFORMED: Bilateral TECHNIQUE: The lower extremity deep venous system is examined utilizing real time linear array sonog shakira with graded compression, doppler sonography and color-flow sonography. VESSELS IMAGED: External Iliac Vein (EIV) Common Femoral Vein Deep Femoral Vein Greater Saphenous Vein * Femoral Vein Popliteal Vein Small Saphenous Vein * Proximal Calf Veins (* superficial vessels) Limited visualized of bilateral legs due to body habitus and patient unable to move/position legs Right Leg: Negative for DVT Left Leg: Negative for DVT, Popliteal compressions not taken due to patient unable to tolerate and l imited visualization No popliteal fossa lesion is seen. IMPRESSION: LIMITED EXAMINATION DEMONSTRATING NO EVIDENCE OF DVT AT THIS TIME.
[2019-10-15 11:51] LABS: Glucose,Whole Blood 115 mg/dL (75-99)
[2019-10-15] MEDS ORDERED: hydrALAZINE HCL 20 MG/ML 1 ML VIAL IVP PRN (12:44)
[2019-10-15] MEDS ORDERED: POTASSIUM CHLORIDE 10 MEQ in WATER FOR INJECTION 1 100ML.BAG IVPB STA (13:46)
--- NOTE | 2019-10-15 13:46 | P.CNPUL ---
History of Present Illness Reason for consult: dyspnea, COPD, obstructive sleep apnea Chief complaint: Tachypnea/ altered mental status/ uncontrolled hypertension History of present illness: This is a 69-year-old female who was transferred from [facility] for neurology evaluation patient has been lethargic poorly responsive but able to maintain her airway with arterial blood gas shows adequate ventilation and oxygenation, patient has a chronic swelling of the left lower extremity likely cellulitis, she is covid 19 negative in other [place], due to poor mental status she underwent a computed tomography scan of the head which is negative for any acute changes has been transferred to the ICU this morning evaluated in the ICU patient was found to be awake but nonverbal and noncommunicative patient had intermittent facial movements, her oxygen saturation is stable on 2 L nasal cannula 93-94% her she is tachypneic respiratory rate is around mid 30s, blood pressure is running about 180- 200 systolic, she has been getting as needed hydralazine every 6 hourly 10 mg was seems not to be helping Review of Systems ROS unobtainable: due to mental status All systems: negative Past Medical History Past Medical History: Asthma, Coronary Artery Disease (CAD), Chest Pain / Angina, GERD/Reflux, Hypertension, Hypertension, Neurologic Disorder, Osteoarthritis (OA), Renal Disease, Thyroid Disorder Additional Past Medical History / Comment(s): anemia. vericose veins. pulmonary embolus, DVT. wounds reji legs with. perpheral neuropathy , back and bilat knee spurs History of Any Multi-Drug Resistant Organisms: None Reported Past Surgical History: Hernia Repair, Tonsillectomy, Tubal Ligation, Tubal Ligation Additional Past Surgical History / Comment(s): BLOOD CLOTS REMOVED FROM LEFT LEG Past Anesthesia/Blood Transfusion Reactions: No Reported Reaction Past Psychological History: Panic Disorder Smoking Status: Never smoker Past Alcohol Use History: None Reported Past Drug Use History: None Reported - Past Family History Mother Family Medical History: No Reported History Daughter(s) Family Medical History: Cancer Additional Family Medical History / Comment(s): cervical Son(s) Family Medical History: CVA/TIA Medications and Allergies Home Medications Medication Instructions Recorded Confirmed Type Unable To Assess [Unable to Assess] 10/14/19 10/14/19 History Allergies Allergy/AdvReac Type Severity Reaction Status Date / Time erythromycin base Allergy Rash/Hives Verified 10/14/19 13:46 [Erythromycin Base] gentamicin [Gentamicin] Allergy Rash/Hives Verified 10/14/19 13:46 Penicillins Allergy Anaphylaxis Verified 10/14/19 13:46 Physical Exam Vitals: Vital Signs Temp Pulse Pulse Resp BP BP Pulse Ox 10/15/19 13:00 102 H 29 H 183/79 98 10/15/19 12:00 97.9 F 98 30 H 190/75 97 10/15/19 11:00 102 H 33 H 177/63 94 L 10/15/19 10:00 105 H 31 H 187/87 96 10/15/19 09:30 105 H 30 H 180/84 95 10/15/19 09:00 97 32 H 185/73 95 10/15/19 08:30 98 34 H 184/79 94 L 10/15/19 08:00 98.1 F 98 41 H 186/75 94 L 10/15/19 06:30 107 H 31 H 173/70 96 10/15/19 06:00 101 H 25 H 170/72 96 10/15/19 05:30 96 26 H 171/74 96 10/15/19 05:00 94 34 H 162/77 96 10/15/19 04:30 98.5 F 93 26 H 146/64 95 10/15/19 04:00 90 41 H 172/77 94 L 10/15/19 03:30 98 32 H 188/84 96 10/15/19 03:00 94 24 182/88 95 10/15/19 02:50 96 38 H 182/88 95 10/15/19 02:40 98 31 H 182/88 94 L 10/15/19 02:30 105 H 37 H 174/93 94 L 10/15/19 02:20 100 29 H 174/93 95 10/15/19 02:10 105 H 44 H 174/93 94 L 10/15/19 02:00 105 H 44 H 170/73 93 L 10/15/19 01:50 110 H 36 H 170/73 93 L 10/15/19 01:40 110 H 35 H 170/73 93 L 10/15/19 01:30 103 H 25 H 169/77 96 10/15/19 01:20 104 H 30 H 169/77 96 10/15/19 01:10 101 H 112 H 34 H 169/77 96 10/15/19 01:00 117 H 20 159/82 95 10/15/19 00:50 97.8 F 121 H 45 H 159/82 96 10/15/19 00:46 34 H 10/14/19 22:28 97.9 F 101 H 40 H 194/84 96 10/14/19 16:30 97.4 F L 93 21 193/89 94 L 10/14/19 13:46 97.5 F L 93 24 177/92 96 Intake and Output 10/14/19 10/15/19 10/15/19 22:59 06:59 14:59 Intake Total 160 219.984 197.477 Output Total 925 1130 580 Balance -765 -910.016 -382.523 Intake: IV 140 Sodium Chloride 0.9% 1, 140 000 ml @ 20 mls/hr IV . Q24H [facility] Rx#:[id number] Intake, IV Titration 160 219.984 57.477 Amount Cefepime 1 gm In Sodium 100 Chloride 0.9% 50 ml @ 100 mls/hr IVPB Q12HR [facility] Rx #:[id number] Heparin Sod,Pork in 0.45% 39.984 57.477 NaCl 25,000 unit In 0.45 % NaCl 1 250ml.bag @ 7.35 UNITS/KG/HR 9.996 mls/hr IV .Q24H [facility] Rx#: [id number] Sodium Chloride 0.9% 1, 90 000 ml @ 20 mls/hr IV . Q24H [facility] Rx#:[id number] Sodium Chloride 0.9% 1, 60 000 ml @ 75 mls/hr IV . [id number] [facility] Rx#:[id number] Sodium Chloride 0.9% 500 90 ml 500 ml @ 20 mls/hr IV .Q24H [facility] Rx#:[id number] Output: Urine 925 1130 580 Other: Voiding Method Indwelling Catheter Indwelling Catheter Indwelling Catheter - Constitutional General appearance: disheveled, mild distress, morbidly obese - EENT Ears: bilateral: normal - Neck Neck: normal ROM Carotids: bilateral: upstroke normal - Respiratory Respiratory: bilateral: CTA - Cardiovascular Rhythm: regular Heart sounds: normal: S1, S2 - Gastrointestinal General gastrointestinal: normal bowel sounds, soft - Integumentary Left leg twice a size of right leg with chronic skin changes likely cellulitis - Musculoskeletal Musculoskeletal: generalized weakness Nonverbal and noncommunicative but awake flat affect eyes open Results - Laboratory Findings CBC and BMP: 10/15/19 05:44 10/15/19 05:44 ABG ABG pH 7.42 (7.35-7.45) 10/14/19 23:49 ABG pCO2 33 mmHg (35-45) L 10/14/19 23:49 ABG pO2 167 mmHg (83-108) H 10/14/19 23:49 ABG O2 Saturation 99.5 % (94-97) H 10/14/19 23:49 PT/INR, D-dimer D-Dimer 5.35 mg/L FEU (<0.60) H 10/14/19 13:56 Abnormal lab findings: Abnormal Labs 10/14/19 10/14/19 10/14/19 12:42 13:56 13:56 RBC 3.78 L Hgb 9.3 L Hct 31.2 L MCH 24.6 L MCHC 29.9 L RDW 17.4 H Plt Count 119 L Lymphocytes # 0.4 L ESR APTT D-Dimer ABG pCO2 ABG pO2 ABG O2 Saturation Sodium Potassium 3.3 L Chloride 116 H Carbon Dioxide BUN 62 H Creatinine 1.85 H Glucose 106 H POC Glucose (mg/dL) 103 H AST 12 L Troponin I C-Reactive Protein Total Protein 5.2 L Albumin 2.2 L TSH 10/14/19 10/14/19 10/14/19 13:56 13:56 13:56 RBC Hgb Hct MCH MCHC RDW Plt Count Lymphocytes # ESR APTT D-Dimer 5.35 H ABG pCO2 ABG pO2 ABG O2 Saturation Sodium Potassium Chloride Carbon Dioxide BUN Creatinine Glucose POC Glucose (mg/dL) AST Troponin I 0.250 H* C-Reactive Protein Total Protein Albumin TSH <0.015 L 10/14/19 10/14/19 10/14/19 16:42 18:13 19:55 RBC Hgb Hct MCH MCHC RDW Plt Count Lymphocytes # ESR APTT D-Dimer ABG pCO2 ABG pO2 ABG O2 Saturation Sodium Potassium Chloride Carbon Dioxide BUN Creatinine Glucose POC Glucose (mg/dL) 109 H 119 H AST Troponin I 0.250 H* C-Reactive Protein Total Protein Albumin TSH 10/14/19 10/14/19 10/15/19 23:29 23:49 00:11 RBC Hgb 9.7 L Hct 32.6 L MCH 24.4 L MCHC 29.7 L RDW 17.3 H Plt Count 116 L Lymphocytes # ESR APTT D-Dimer ABG pCO2 33 L ABG pO2 167 H ABG O2 Saturation 99.5 H Sodium Potassium Chloride Carbon Dioxide BUN Creatinine Glucose POC Glucose (mg/dL) 106 H AST Troponin I C-Reactive Protein Total Protein Albumin [facility] 10/15/19 10/15/19 10/15/19 00:11 00:45 05:44 RBC Hgb 10.0 L Hct 33.2 L MCH 24.7 L MCHC 30.0 L RDW 16.9 H Plt Count 120 L Lymphocytes # 0.6 L ESR 92 H APTT D-Dimer ABG pCO2 ABG pO2 ABG O2 Saturation Sodium 146 H Potassium 3.3 L Chloride 117 H Carbon Dioxide BUN 67 H Creatinine 1.94 H Glucose 103 H POC Glucose (mg/dL) 104 H AST 13 L Troponin I C-Reactive Protein Total Protein 5.6 L Albumin 2.5 L [facility] 10/15/19 10/15/19 10/15/19 05:44 05:44 11:50 RBC Hgb Hct MCH MCHC RDW Plt Count Lymphocytes # ESR APTT 33.9 H D-Dimer ABG pCO2 ABG pO2 ABG O2 Saturation Sodium 148 H Potassium 3.3 L Chloride 119 H Carbon Dioxide 21 L BUN 70 H Creatinine 2.04 H Glucose 111 H POC Glucose (mg/dL) 115 H AST Troponin I C-Reactive Protein 186.9 H Total Protein Albumin TSH - Diagnostic Findings Chest x-ray: report reviewed, image reviewed (Chest x-ray finding as noted above) Assessment and Plan Assessment: Uncontrolled malignant hypertension Hypertensive encephalopathy likely PRESS syndrome Left lower extremity cellulitis ultrasound has been done no DVT has been noted heparin has been changed to subcu Hypokalemia Coronary artery disease Chronic lymphedema of left leg Hypertension hypertensive cardiovascular disease Morbid obesity Plan: Continue broad-spectrum antibiotics As duplex ultrasound of the left lower extremity negative for DVT we'll change heparin to subcu We will initiate IV Cardene Need a central line Patient is being planned by neurology service for transfer to tertiary [facility] for MRI of the brain Time with Patient: Greater than 30
[2019-10-15] MEDS ORDERED: LORazepam 2 MG/ML INJ IV STA (14:18)
--- NOTE | 2019-10-15 14:51 | P.CRDCN ---
History of Present Illness Consult date: 10/15/19 Requesting physician: Narendra Zurita Chief complaint: Mental status changes History of present illness: This is a 69-year-old female with history of hypertension, hyperlipidemia, GERD, hypothyroidism, left leg cellulitis, patient initially was at [facility] where she presented with left lower extremity swelling and redness, she was diagnosed there with left lower extremity cellulitis. She was initiated on IV antibiotics and the left leg swelling and redness seemed to improve. She remained afebrile and her white blood cell count was normal. Patient was starting to have a changes in her mentation, and for this reason she was transferred here to [facility] for neurology service. She underwent a CAT scan of the brain which was negative for any acute changes over at [facility]. Patient continues to be confused, most of the history was obtained from the medical record. A cardiology consultation was requested for congestive heart failure. Chest x-ray showed minimal basilar subsegmental atelectasis and low lung volumes. No acute process noted. Repeat CAT scan of the brain performed here was negative. Venous duplex study of bilateral lower extremities was performed which did not reveal any evidence for DVT. Blood pressure 190/70, 182/70, heart rate 102, 98% on 3 L of oxygen. Blood cell count is normal, hemoglobin 10.0, platelet count 120. Sodium 148, potassium 3.3, chloride 119, CO2 21, BUN 70, creatinine 2.0. The BNP level was 12,000, TSH 0.015. Troponin 0.25, 0.25. Magnesium 2.0, donovan virus not detected. EKG shows a sinus tachycardia. Past Medical History Past Medical History: Asthma, Coronary Artery Disease (CAD), Chest Pain / Angina, GERD/Reflux, Hypertension, Hypertension, Neurologic Disorder, Osteo arthritis (OA), Renal Disease, Thyroid Disorder Additional Past Medical History / Comment(s): anemia. vericose veins. pulmonary embolus, DVT. wounds reji legs with. perpheral neuropathy , back and bilat knee spurs History of Any Multi-Drug Resistant Organisms: None Reported Past Surgical History: Hernia Repair, Tonsillectomy, Tubal Ligation, Tubal Ligation Additional Past Surgical History / Comment(s): BLOOD CLOTS REMOVED FROM LEFT LEG Past Anesthesia/Blood Transfusion Reactions: No Reported Reaction Past Psychological History: Panic Disorder Smoking Status: Never smoker Past Alcohol Use History: None Reported Past Drug Use History: None Reported - Past Family History Mother Family Medical History: No Reported History Daughter(s) Family Medical History: Cancer Additional Family Medical History / Comment(s): cervical Son(s) Family Medical History: CVA/TIA Medications and Allergies Home Medications Medication Instructions Recorded Confirmed Type Unable To Assess [Unable to Assess] 10/14/19 10/14/19 History Allergies Allergy/AdvReac Type Severity Reaction Status Date / Time erythromycin base Allergy Rash/Hives Verified 10/14/19 13:46 [Erythromycin Base] gentamicin [Gentamicin] Allergy Rash/Hives Verified 10/14/19 13:46 Penicillins Allergy Anaphylaxis Verified 10/14/19 13:46 Physical Exam Vitals: Vital Signs Temp Pulse Pulse Resp BP BP Pulse Ox 10/15/19 13:00 102 H 29 H 183/79 98 10/15/19 12:00 97.9 F 98 30 H 190/75 97 10/15/19 11:00 102 H 33 H 177/63 94 L 10/15/19 10:00 105 H 31 H 187/87 96 10/15/19 09:30 105 H 30 H 180/84 95 10/15/19 09:00 97 32 H 185/73 95 10/15/19 08:30 98 34 H 184/79 94 L 10/15/19 08:00 98.1 F 98 41 H 186/75 94 L 10/15/19 06:30 107 H 31 H 173/70 96 10/15/19 06:00 101 H 25 H 170/72 96 10/15/19 05:30 96 26 H 171/74 96 10/15/19 05:00 94 34 H 162/77 96 10/15/19 04:30 98.5 F 93 26 H 146/64 95 10/15/19 04:00 90 41 H 172/77 94 L 10/15/19 03:30 98 32 H 188/84 96 10/15/19 03:00 94 24 182/88 95 10/15/19 02:50 96 38 H 182/88 95 10/15/19 02:40 98 31 H 182/88 94 L 10/15/19 02:30 105 H 37 H 174/93 94 L 10/15/19 02:20 100 29 H 174/93 95 10/15/19 02:10 105 H 44 H 174/93 94 L 10/15/19 02:00 105 H 44 H 170/73 93 L 10/15/19 01:50 110 H 36 H 170/73 93 L 10/15/19 01:40 110 H 35 H 170/73 93 L 10/15/19 01:30 103 H 25 H 169/77 96 10/15/19 01:20 104 H 30 H 169/77 96 10/15/19 01:10 101 H 112 H 34 H 169/77 96 10/15/19 01:00 117 H 20 159/82 95 10/15/19 00:50 97.8 F 121 H 45 H 159/82 96 10/15/19 00:46 34 H 10/14/19 22:28 97.9 F 101 H 40 H 194/84 96 10/14/19 16:30 97.4 F L 93 21 193/89 94 L Intake and Output 10/14/19 10/15/19 10/15/19 22:59 06:59 14:59 Intake Total 160 219.984 197.477 Output Total 925 1130 580 Balance -765 -910.016 -382.523 Intake: IV 140 Sodium Chloride 0.9% 1, 140 000 ml @ 20 mls/hr IV . Q24H [facility] Rx#:[id number] Intake, IV Titration 160 219.984 57.477 Amount Cefepime 1 gm In Sodium 100 Chloride 0.9% 50 ml @ 100 mls/hr IVPB Q12HR [facility] Rx #:[id number] Heparin Sod,Pork in 0.45% 39.984 57.477 NaCl 25,000 unit In 0.45 % NaCl 1 250ml.bag @ 7.35 UNITS/KG/HR 9.996 mls/hr IV .Q24H [facility] Rx#: [id number] Sodium Chloride 0.9% 1, 90 000 ml @ 20 mls/hr IV . Q24H [facility] Rx#:[id number] Sodium Chloride 0.9% 1, 60 000 ml @ 75 mls/hr IV . [id number] [facility] Rx#:[id number] Sodium Chloride 0.9% 500 90 ml 500 ml @ 20 mls/hr IV .Q24H [facility] Rx#:[id number] Output: Urine 925 1130 580 Other: Voiding Method Indwelling Catheter Indwelling Catheter Indwelling Catheter PHYSICAL EXAMINATION: GENERAL: 69-year-old female, noncommunicative nonverbal HEENT: Head is atraumatic, normocephalic. Pupils equal, round. Sclera anicteric. Conjunctiva are clear. Mucous membranes of the mouth are moist. Neck is supple. There is no elevated jugular venous pressure. No carotid] bruit is heard. HEART EXAMINATION: Heart S1, S2 normal. No murmur or gallop heard. CHEST EXAMINATION: Lungs are clear to auscultation and precussion. No chest wall tenderness is noted on palpation or with deep breathing. ABDOMEN: Soft, nontender. Bowel sounds are heard. No organomegaly noted. EXTREMITIES:[ 1+ peripheral pulses with evidence of peripheral edema left leg greater than the right, chronic skin changes, evidence of redness and cellulitis . NEUROLOGIC [patient is awake, nonverbal, flat affect, eyes open Results 10/15/19 05:44 10/15/19 05:44 Cardiac Enzymes 10/14/19 10/14/19 10/14/19 Range/Units 13:56 13:56 18:13 AST 12 L (14-36) U/L Troponin I 0.250 H* 0.250 H* (0.000-0.034) ng/mL 10/15/19 Range/Units 00:11 AST 13 L (14-36) U/L Troponin I (0.000-0.034) ng/mL Coagulation 10/15/19 10/15/19 Range/Units 00:11 05:44 APTT 24.0 33.9 H (22.0-30.0) sec CBC 10/15/19 10/15/19 Range/Units 00:11 05:44 WBC 5.7 4.6 (3.8-10.6) k/uL RBC 3.97 4.03 (3.80-5.40) m/uL Hgb 9.7 L 10.0 L (11.4-16.0) gm/dL Hct 32.6 L 33.2 L (34.0-46.0) % Plt Count 116 L 120 L (150-450) k/uL Comprehensive Metabolic Panel 10/14/19 10/15/19 10/15/19 Range/Units 13:56 00:11 05:44 Sodium 144 146 H 148 H (137-145) mmol/L Potassium 3.3 L 3.3 L 3.3 L (3.5-5.1) mmol/L Chloride 116 H 117 H 119 H (98-107) mmol/L Carbon Dioxide 22 22 21 L (22-30) mmol/L BUN 62 H 67 H 70 H (7-17) mg/dL Creatinine 1.85 H 1.94 H 2.04 H (0.52-1.04) mg/dL Glucose 106 H 103 H 111 H (74-99) mg/dL Calcium 9.7 10.2 9.9 (8.4-10.2) mg/dL AST 12 L 13 L (14-36) U/L ALT 7 7 (4-34) U/L Alkaline Phosphatase 73 81 (38-126) U/L Total Protein 5.2 L 5.6 L (6.3-8.2) g/dL Albumin 2.2 L 2.5 L (3.5-5.0) g/dL Current Medications Generic Name Dose Route Start Last Admin Trade Name Freq PRN Reason Stop Dose Admin Furosemide 20 mg 10/14/19 21:00 10/15/19 08:28 Lasix IV 20 mg Q12HR [facility] Administration Heparin Sodium (Porcine) 5,000 unit 10/15/19 16:00 Heparin SQ Q8HR [facility] Hydralazine HCl 10 mg 10/15/19 12:44 10/15/19 13:11 Apresoline IVP 10 mg Q4HR PRN Administration Blood Pressure - High Cefepime HCl 1 gm/ Sodium 50 mls @ 100 mls/hr 10/14/19 14:45 10/14/19 22:05 Chloride IVPB 100 mls/hr Q12HR [facility] Administration Sodium Chloride 1,000 mls @ 20 mls/hr 10/15/19 01:15 10/15/19 01:15 Saline 0.9% IV 20 mls/hr .Q24H [facility] Administration Sodium Chloride 500 mls @ 20 mls/hr 10/15/19 01:30 10/15/19 05:21 Saline 0.9% IV 20 mls/hr .Q24H [facility] Administration Fluconazole/Sodium Chloride 50 mls @ 50 mls/hr 10/15/19 10:30 100 mg/ IV Solution IVPB DAILY [facility] Potassium Chloride 10 meq/ IV 100 mls @ 100 mls/hr 10/15/19 13:46 Solution IVPB 10/15/19 14:45 ONCE STA Valproic Acid 500 mg/ Sodium 105 mls @ 100 mls/hr 10/15/19 15:00 Chloride IVPB Q6H [facility] Pantoprazole Sodium 40 mg 10/14/19 14:30 10/15/19 08:28 Protonix IVP 40 mg DAILY [facility] Administration Intake and Output 10/14/19 10/15/19 10/15/19 22:59 06:59 14:59 Intake Total 160 219.984 197.477 Output Total 925 1130 580 Balance -765 -910.016 -382.523 Intake: IV 140 Sodium Chloride 0.9% 1, 140 000 ml @ 20 mls/hr IV . Q24H [facility] Rx#:[id number] Intake, IV Titration 160 219.984 57.477 Amount Cefepime 1 gm In Sodium 100 Chloride 0.9% 50 ml @ 100 mls/hr IVPB Q12HR [facility] Rx #:[id number] Heparin Sod,Pork in 0.45% 39.984 57.477 NaCl 25,000 unit In 0.45 % NaCl 1 250ml.bag @ 7.35 UNITS/KG/HR 9.996 mls/hr IV .Q24H [facility] Rx#: [id number] Sodium Chloride 0.9% 1, 90 000 ml @ 20 mls/hr IV . Q24H [facility] Rx#:[id number] Sodium Chloride 0.9% 1, 60 000 ml @ 75 mls/hr IV . [id number] [facility] Rx#:[id number] Sodium Chloride 0.9% 500 90 ml 500 ml @ 20 mls/hr IV .Q24H [facility] Rx#:[id number] Output: Urine 925 1130 580 Other: Voiding Method Indwelling Catheter Indwelling Catheter Indwelling Catheter 10/15/19 05:44 10/15/19 05:44 EKG Interpretations (text) EKG shows a sinus tachycardia Assessment and Plan Plan: Assessment and plan #1 left lower extremity cellulitis, no evidence of DVT in either lower extremity #2 uncontrolled hypertension #3 hypokalemia #4 morbid obesity #5 troponin abnormality, not consistent with acute coronary syndrome, no signi ficant rise and fall pattern #6 mental status changes, neurology following #6 congestive heart failure, LV function unknown Plan We will obtain an echocardiogram with Doppler study, continue current dose of IV Lasix. We will also start the patient on IV beta eduardo, once she is taking oral medications we will transition over to oral. TSH level was 0.015, to be addressed by primary. Monitor renal function. Further recommendations to follow. DNP note has been reviewed, I agree with a documented findings and plan of care. Patient was seen and examined.
[2019-10-15] MEDS ORDERED: VALPROATE SODIUM 500 MG in SODIUM CHLORIDE 0.9% 100 ML IVPB SCH (15:00)
--- NOTE | 2019-10-15 15:06 | P.PCN ---
Date of Procedure: 10/15/19 Preoperative Diagnosis: Malignant hypertension/hypertensive encephalopathy Postoperative Diagnosis: As above Procedure(s) Performed: Central line placement Anesthesia: local Surgeon: Darron Valdes Disposition: ICU Indications for Procedure: As above Operative Findings: As he has below Description of Procedure: Patient prepared and draped in a usual fashion using a modified surgery triple- lumen catheter was inserted into right femoral vein without difficulty postprocedure chest x-ray is pending
--- NOTE | 2019-10-15 15:16 | EEG ---
ELECTROENCEPHALOGRAM REPORT DATE OF SERVICE: 10/15/2019 HISTORY: This is a 69-year-old female who was transferred from an outside hospital due to worsening mentation. The patient was initially being treated for cellulitis of the leg. CT scan of the head was negative for any intracranial pathology. TECHNICAL REPORT: This is an inpatient EEG performed on the [employer] EEG monitor with electrodes placed according to the International 10-20 system and a single EKG channel. Simultaneous video EEG monitoring was performed. This EEG was reviewed in both longitudinal bipolar, common average referential and transverse montages. Photic stimulation was performed. The recording begins with generalized high to moderate amplitude spike and slow wave discharge intermixed with sharp and slow wave discharges occurring at 1-2 cycles per second. This is occurring primarily in a generalized fashion. Maximum negativity appears to be lateralized to the right and left frontal parietal head region. The background is slow consisting of mixed theta frequencies and at times slowing down to delta frequencies between 2-3 hertz. The recording through its entirety, even through photic stimulation continues with generalized sharp and slow wave discharges in a repetitive fashion consistent with electrographic status. A verbal order was given to the nurse in charge to administer Ativan 1 mg IV stat and valproic acid 500 mg stat. This patient is in the process of being transferred to a higher level of care for further neuro imaging studies. MMODL / IJN: [id number] / MTDD
[2019-10-15] MEDS ORDERED: niCARdipine 20 MG in SODIUM CHLORIDE 0.9% 192 ML IV SCH (15:30)
--- NOTE | 2019-10-15 15:39 | XR ---
EXAMINATION TYPE: XR chest 1V portable DATE OF EXAM: 10/15/2019 COMPARISON: Yesterday HISTORY: Check line placement TECHNIQUE: FINDINGS: There is a right jugular catheter with tip in the right atrium. No pneumothorax. There is c oarsening of the interstitial markings. Heart appears slightly enlarged. IMPRESSION: Coarse lung markings and mild pulmonary congestion is the same or increased compared to y esterday.
--- NOTE | 2019-10-15 15:51 | PN ---
PROGRESS NOTE 69-year-old white female transferred from [facility] for neurology consultation. She looks lethargic, unresponsive. She is mumbling words back and forth, trying to open her eyes. Blood gas shows adequate oxygenation, same as yesterday. Apparently they called A team because was in altered mental status but she is breathing the same as she did yesterday, just in some kind of encephalopathy versus CVA. She is noncommunicative, intermittent facial movements and mumbling. On 2 L her sats are 93-94, the same as yesterday. Blood pressure is running high, 180s to 200s systolic for which medicines have been ordered. Hydralazine has been given, not helping too much with her blood pressures. PAST MEDICAL HISTORY: As noted, coronary artery disease, GERD, lymphedema, osteoarthritis, hypothyroidism. She has not seen a doctor in many years. She remains in similar status as yesterday. Blood pressure is 170s over 80s. She remains on cefepime for cellulitis of the legs and lymphedema. She is lying unconscious in the bed on her back with increased respiratory distress. GI is soft. Lungs are mostly clear. Heart S1, S2. White count is 4.5, hemoglobin is 9.3, which is stable. Potassium is low at 3.3, will be replaced. Creatinine is 1.85, BUN is 62. TSH is less than 0.015. Troponin 0.25. The ABG shows pCO2 of 33, PO2 167, oxygenation on ABGs is 99. ASSESSMENT: 1. Uncontrolled malignant hypertension. 2. Hypertensive encephalopathy. Pulmonology thinks it could be posterior reversible encephalopathy syndrome. 3. Lower extremity cellulitis. 4. Hypokalemia. 5. Coronary artery disease. 6. Diastolic congestive heart failure. 7. Lymphedema. 8. Possible cellulitis of the legs. 9. Morbid obesity. 10.Probable sleep apnea. 11.Hypertensive cardiovascular disease. Remains on cefepime. Duplex ultrasounds are negative for DVT. We are going to possibly use some IV blood pressure medicines. Wait for Neurology for further evaluation. Await for recommendations. MMODL / IJN: [id number] /
[2019-10-15] MEDS ORDERED: METOPROLOL TARTRATE 5 MG/5 ML VIAL IVP SCH (16:00)
[2019-10-15] MEDS ORDERED: HEPARIN SODIUM,PORCINE 5,000 UNIT/ML 1 ML VIAL SQ SCH (16:00)
[2019-10-15 16:43] VITALS: BP 183/81; PULSE 112; RESP 38; TEMP 97.8
--- NOTE | 2019-10-15 19:13 | PN ---
PROGRESS NOTE DATE OF SERVICE: 10/15/2019 REASON FOR FOLLOWUP: Left lower extremity cellulitis. INTERVAL HISTORY: The patient has been transferred to the ICU because of her mental status changes. She was not being seen by Neurology yesterday and patient possibly in the process of getting transferred to a different facility. The patient remains to be lethargic and sleepy and is unable to provide any history. PHYSICAL EXAMINATION: On examination, her blood pressure is 183/79 with a pulse of 102, temperature 97.9. She is 98% on 2 L nasal cannula. General description is an elderly female lying in bed in no distress. Respiratory system: Unlabored breathing and is clear to auscultation anteriorly. Heart S1, S2. Regular rate and rhythm. Abdomen soft, no tenderness. Left leg did have some chronic swelling. No significant redness or any drainage was noticed. LABS: Hemoglobin is 10, white count 4.6, BUN of 70, creatinine 2.04. DIAGNOSTIC IMPRESSION AND PLAN: Patient with acute left lower extremity cellulitis for which the patient is currently on IV cefepime and the patient's cellulitis has shown clinical improvement. However, clinically, the patient did have a problem with mental status changes for which the patient is being transferred to another facility for neurology evaluation. Keep the patient on cefepime until the patient is evaluated by ID service at that facility. MMODL / IJN: [id number] /
--- NOTE | 2019-10-19 12:25 | CDI ---
Documentation Clarification Form Date: 10/19/19 From: Cheri Martinez Phone: If you have a question about this query, please contact Britta Oliveira, Test Conductor at [phone] between 8am and 5pm. Admit Date: 10/14/19 Discharge Date:10/15/19 Patient Name: Sandra Salazar Visit Number: [id number] ATTENTION: The Clinical Documentation Specialists (CDI) and [facility] Coding Staff appreciate your assistance in clarifying documentation. Please respond to the clarification below the line at the bottom and electronically sign. The CDI & [facility] Coding staff will review the response and follow-up if needed. Please note: Queries are made part of the Legal Health Record. If you have any questions, please contact the author of this message via ITS. Dear Dr. Zurita The patient presented with the following: delirium and uncontrolled malignant hypertension History/Risk Factors: Hypertensive cardiovascular disease, diastolic CHF, sleep apnea Clinical Indicators: Elevated blood pressure, hypertensive encephalopathy Vital Signs: 10/14/19 BP: 177/92, 193/89, 194/84; 10/15/19 BP: 169/77, 169/77, 169/77, 170/73, 170/73, 170/73, 174/93, 174/93, 174/93, 182/88, 182/88, 182/84, 172/77, 146/64 Vital Signs: T. 97.5, P. 93, R. 24 Treatment: IV Apresoline 10 mg q 6 hours then q 4 hours; IV Nicardipine 20mg Consults: Cardiology documented uncontrolled hypertension. In your professional opinion, can you please further clarify the uncontrolled malignant hypertension? Crisis Emergency Urgency Other, please specify Unable to determine MTDD
--- NOTE | 2019-10-23 13:48 | DS ---
DISCHARGE SUMMARY DATE ADMITTED: 10/14/2019. DISCHARGE DATE: 10/15/2019 He came to the hospital with altered mental status. Transferred from the other hospital in order to see a neurologist due to altered mental status and was possibly found to have status epilepticus and due to no neurology here over the weekend and 24 hour EEG monitoring. Discussed with the case with Neurology Dr. Dhillon and we transferred her down to home where then can do 24 hour EEG monitoring. Medications to be continued were per her recommendations that she was admitted with. She is stable with vital signs on discharge. We did what Dr. Dhillon recommended and we transferred her down. Please see further orders from Lauren Ross. NANCYL / IJN: [id number] /
--- NOTE | 2019-10-27 10:40 | CDI ---
Documentation Clarification Form Date: 10/27/19 From: Cheri Martinez Phone: If you have a question about this query, please contact Britta Oliveira Casting Inspector at [phone] between 8am and 5pm. Admit Date: 10/14/19 Discharge Date:10/15/19 Patient Name: Sandra Salazar Visit Number: [id number] ATTENTION: The Clinical Documentation Specialists (CDI) and [facility] Coding Staff appreciate your assistance in clarifying documentation. Please respond to the clarification below the line at the bottom and electronically sign. The CDI & [facility] Coding staff will review the response and follow-up if needed. Please note: Queries are made part of the Legal Health Record. If you have any questions, please contact the author of this message via ITS. Dear Dr. Zurita Thank you for signing your previous query. Please document a response before signing this query. The patient presented with the following: delirium and uncontrolled malignant hypertension History/Risk Factors: Hypertensive cardiovascular disease, diastolic CHF, sleep apnea Clinical Indicators: Elevated blood pressure, hypertensive encephalopathy Vital Signs: 10/14/19 BP: 177/92, 193/89, 194/84; 10/15/19 BP: 169/77, 169/77, 169/77, 170/73, 170/73, 170/73, 174/93, 174/93, 174/93, 182/88, 182/88, 182/84, 172/77, 146/64 Vital Signs: T. 97.5, P. 93, R. 24 Treatment: IV Apresoline 10 mg q 6 hours then q 4 hours; IV Nicardipine 20mg Consults: Cardiology documented uncontrolled hypertension. In your professional opinion, can you please further clarify the uncontrolled malignant hypertension? Crisis Emergency Urgency Other, please specify Unable to determine MTDD
== END 2019-10-15 16:30 | disposition short-term general hospital (02) | DRG 291 ==
LOC: 3SCARD 12:45 → 2SICU 10-15 00:24
PROVIDERS: ADMIT Family Medicine; ATTEND Family Medicine
PROC: 02H633Z Insertion of Infusion Device into Right Atrium, Percutaneous Approach (ICD-10-PCS; principal; 2019-10-14)
DX: I11.0 Hypertensive heart disease with heart failure (principal); I67.83 Posterior reversible encephalopathy syndrome; I67.4 Hypertensive encephalopathy; L03.116 Cellulitis of left lower limb; I50.32 Chronic diastolic (congestive) heart failure; E03.9 Hypothyroidism, unspecified; E66.01 Morbid (severe) obesity due to excess calories; E78.5 Hyperlipidemia, unspecified; E87.6 Hypokalemia; F41.0 Panic disorder [episodic paroxysmal anxiety]; Z11.59 Encounter for screening for other viral diseases; G47.33 Obstructive sleep apnea (adult) (pediatric); I25.10 Atherosclerotic heart disease of native coronary artery without angina pectoris; I89.0 Lymphedema, not elsewhere classified; J44.9 Chronic obstructive pulmonary disease, unspecified; K21.9 Gastro-esophageal reflux disease without esophagitis; M19.90 Unspecified osteoarthritis, unspecified site; G62.9 Polyneuropathy, unspecified; I83.90 Asymptomatic varicose veins of unspecified lower extremity; R79.89 Other specified abnormal findings of blood chemistry; Z98.51 Tubal ligation status; Z86.711 Personal history of pulmonary embolism; Z86.718 Personal history of other venous thrombosis and embolism; Z88.1 Allergy status to other antibiotic agents; Z88.0 Allergy status to penicillin; Z79.899 Other long term (current) drug therapy; Z82.3 Family history of stroke
CPT/HCPCS: 36600; 70450; 71045; 80048; 80053; 82140; 82533; 82607; 82805; 83605; 83735; 83880; 84443; 84484; 85025; 85027; 85379; 85652; 85730; 86140; 87070; 87075; 87086; 87205; 87635; 93970; 95816

== ENCOUNTER 2020-02-16 07:58 | Day surgery (SDC) | payer MEDICARE, OTHER ==
[2020-02-14 12:15] VITALS: BMI 48.2
[2020-02-16 08:42] VITALS: TEMP 97.6
[2020-02-16] MEDS ORDERED: LACTATED RINGERS 1,000 ML IV ONE (08:48)
[2020-02-16 08:55] LABS: Glucose,Whole Blood 101 mg/dL (75-99)
[2020-02-16] MEDS ORDERED: PROPOFOL 10 MG/ML 20 ML VIAL IV ONE (08:56)
[2020-02-16 09:31] VITALS: RESP 16
--- NOTE | 2020-02-16 09:31 | P.PCN ---
Date of Procedure: 02/16/20 Description of Procedure: BRIEF HISTORY: Patient is a 69-year-old female who presents for outpatient colonoscopy for evaluation of iron deficiency anemia. Patient denies any problems with her bowels. She is being treated by the hematology service for anemia. No prior colonoscopy. PROCEDURE PERFORMED: Colonoscopy with polypectomy. PREOPERATIVE DIAGNOSIS: Iron deficiency anemia, no prior colonoscopy. ESTIMATED BLOOD LOSS: Minimal. IV sedation per Anesthesia. PROCEDURE: After informed consent was obtained, the patient, was brought into the endoscopy unit. IV sedation was administered by Anesthesia under continuous monitoring. Digital rectal examination was normal. Initially the Olympus CF-190 flexible video colonoscope was then inserted in the rectum, gradually advanced into the cecum without any difficulty. Careful examination was performed as the scope was gradually being withdrawn. Ileocecal valve and the appendiceal orifice were visualized and appeared normal. Prep was excellent. Mucosa of the cecum, ascending colon, transverse colon, descending colon, sigmoid colon, and rectum appeared normal. The terminal ileum was intubated and appeared normal. 3 diminutive polyps measuring 2-3 mm in size removed from the transverse colon, descending colon and rectum with cold forcep polypectomy. A few scattered diverticula noted in the sigmoid colon. Retroflexion was performed in the rectum and no lesions were seen. The patient tolerated the procedure well. IMPRESSION: 3 diminutive polyps removed from the transverse colon, descending colon and rectum with cold forcep polypectomy. Mild sigmoid diverticulosis. Otherwise, normal-appearing colon from rectum to cecum and normal appearing terminal ileum. RECOMMENDATIONS: Findings of this examination were discussed with the patient. Okay to resume diet and medications. Would pathology from polypectomy. Would recommend repeat colonoscopy in 5 years pending pathology from polypectomy.
[2020-02-16 09:44] VITALS: BP 118/84; PULSE 77
== END 2020-02-16 10:06 | disposition home or self-care (01) ==
LOC: ORWHC2ENDO 07:58
PROVIDERS: ATTEND Internal Medicine
DX: D12.3 Benign neoplasm of transverse colon (principal); D12.4 Benign neoplasm of descending colon; K62.1 Rectal polyp; K57.30 Diverticulosis of large intestine without perforation or abscess without bleeding; D50.9 Iron deficiency anemia, unspecified; I89.0 Lymphedema, not elsewhere classified; I48.19 Other persistent atrial fibrillation; G92 Toxic encephalopathy; R53.1 Weakness; Z86.711 Personal history of pulmonary embolism; E11.9 Type 2 diabetes mellitus without complications; J45.40 Moderate persistent asthma, uncomplicated; G40.909 Epilepsy, unspecified, not intractable, without status epilepticus; E07.9 Disorder of thyroid, unspecified; I25.10 Atherosclerotic heart disease of native coronary artery without angina pectoris; I12.9 Hypertensive chronic kidney disease with stage 1 through stage 4 chronic kidney disease, or unspecified chronic kidney disease; E11.22 Type 2 diabetes mellitus with diabetic chronic kidney disease; N18.3 Chronic kidney disease, stage 3 (moderate); I50.30 Unspecified diastolic (congestive) heart failure; E04.9 Nontoxic goiter, unspecified; Z98.51 Tubal ligation status; Z98.890 Other specified postprocedural states; Z80.49 Family history of malignant neoplasm of other genital organs; Z86.718 Personal history of other venous thrombosis and embolism; Z90.721 Acquired absence of ovaries, unilateral; Z79.4 Long term (current) use of insulin; Z79.891 Long term (current) use of opiate analgesic; Z79.51 Long term (current) use of inhaled steroids; Z79.82 Long term (current) use of aspirin; Z99.81 Dependence on supplemental oxygen; Z79.899 Other long term (current) drug therapy; Z88.5 Allergy status to narcotic agent; Z88.0 Allergy status to penicillin; Z88.1 Allergy status to other antibiotic agents; Z88.8 Allergy status to other drugs, medicaments and biological substances; F41.9 Anxiety disorder, unspecified
CPT/HCPCS: 88305; 45380; J2704

== ENCOUNTER → 2022-03-14 | Outpatient (CLI) | payer MEDICARE, OTHER ==
--- NOTE | 2022-03-14 16:23 | NM ---
EXAMINATION TYPE: NM parathyroid DATE OF EXAM: 03/14/2022 COMPARISON: NONE HISTORY: Hypercalcemia TECHNIQUE: Following administration of 25.8 mCi Tc99m Sestamibi. Anterior projection images of the neck and ches t were obtained 10 minutes and 3 hours post injection, no SPECT imaging was performed due to patient' s inability to cooperate FINDINGS: Thyroid tracer washout: Delayed images demonstrate near-complete tracer washout from the thyroid. Parathyroid uptake: None. The delayed images do not demonstrate any focal abnormal persistent uptake in the region of the parathyroid glands to suggest parathyroid adenoma. Normal uptake: There is physiological tracer uptake in salivary glands and thyroid gland. IMPRESSION: Normal parathyroid imaging study. No evidence for mediastinal uptake to suggest mediastinal parathyro id adenoma
== END | disposition home or self-care (01) ==
LOC: RADNMMAIN 10:46
PROVIDERS: ATTEND Internal Medicine Nephrology
DX: E83.52 Hypercalcemia (principal)
CPT/HCPCS: 78070; A9500

== ENCOUNTER 2022-05-13 15:24 | Emergency (ER) | payer MEDICARE, OTHER ==
[2022-05-13 15:29] VITALS: TEMP 98.1
--- NOTE | 2022-05-13 16:02 | ED ---
General Adult HPI - General Chief complaint: Recheck/Abnormal Lab/Rx Stated complaint: abn labs, confusion Time Seen by Provider: 05/13/22 15:26 Source: patient, EMS Limitations: altered mental status - History of Present Illness Initial comments: Patient is a 71-year-old female who presents to emergency department apparently for laboratory abnormalities and possible confusion. Patient has a history of type 2 diabetes, COPD, postmenopausal bleeding no longer on blood thinners for her atrial fibrillation, chronic left lower extremity swelling and skin changes who presents emergency department for apparent hypernatremia at her outside facility. Patient is uncertain why she is here. She is alert and oriented 4. She has no acute complaints at this time. States it did mention something about laboratory studies being off. Does have a chronic indwelling Hager. Has no other acute complaints at this time. Denies chest pain, shortness of breath, fevers, chills, abdominal pain, nausea, vomiting, diarrhea. Since or further evaluation at this time. She is chronically on 2 L nasal cannula. - Related Data Home Medications Medication Instructions Recorded Confirmed Budesonide-Formot 160-4.5 Mcg 2 puff INHALATION RT-BID@0800,1700 02/14/20 05/13/22 [Symbicort 160-4.5 Mcg Inhaler] DULoxetine HCL [Cymbalta] 20 mg PO BID@0800,1700 02/14/20 05/13/22 Famotidine 20 mg PO DAILY@0800 02/14/20 05/13/22 Ferrous Sulfate [Feosol] 325 mg PO DAILY@0800 02/14/20 05/13/22 Folic Acid 1 mg PO DAILY@17002/14/20 05/13/22 Ipratropium-Albuterol Nebulize 3 ml INHALATION RT-Q6H PRN 02/14/20 05/13/22 [Duoneb 0.5 mg-3 mg/3 ml Soln] Lacosamide [Vimpat] 100 mg PO BID@0800,2100 02/14/20 05/13/22 Magnesium Hydroxide [Milk of 7,200 mg PO DAILY PRN 02/14/20 05/13/22 Magnesia Concentrate] Metoprolol Tartrate [Lopressor] 50 mg PO BID@0800,1700 02/14/20 05/13/22 Na Phos,M-B/Na Phos,Di-Ba [Fleet 133 ml RECTAL DAILY PRN 02/14/20 05/13/22 Adult] bisacodyL [Dulcolax] 10 mg RECTAL DAILY PRN 02/14/20 05/13/22 Acetaminophen with Codeine 2 tab PO Q6H PRN 05/13/22 05/13/22 [Acetaminophen-Cod #3 Tablet] Albuterol Sulfate [Proventil Hfa] 1 puff INHALATION RT-Q4H PRN 05/13/22 05/13/22 Albuterol Sulfate [Proventil Hfa] 2 puff INHALATION RT-Q6H 05/13/22 05/13/22 Ascorbic Acid [Vitamin C] 500 mg PO DAILY@0800 05/13/22 05/13/22 Atorvastatin Calcium 20 mg PO DAILY@1700 05/13/22 05/13/22 Cholecalciferol [Vitamin D3 (25 50 mcg PO BID@0800,1700 05/13/22 05/13/22 Mcg = 1000 Iu)] Cyanocobalamin (Vitamin B-12) 1,000 mcg PO DAILY@0800 05/13/22 05/13/22 [Vitamin B-12] INSULIN LISPRO (HumaLOG) [humaLOG] See Protocol SQ ACHS 05/13/22 05/13/22 Sodium Zirconium Cyclosilicate 10 gm PO DAILY@1700 05/13/22 05/13/22 [Lokelma] Zinc Gluconate [Zinc] 50 mg PO DAILY@1700 05/13/22 05/13/22 hydrALAZINE HCL [Apresoline] 25 mg PO BID@0800,2100 05/13/22 05/13/22 Previous Rx's Medication Instructions Recorded Sulfamethox-Tmp 800-160Mg [Bactrim 1 tab PO Q12HR 7 Days #14 tab 05/13/22 DS 800-160 mg] Allergies Allergy/AdvReac Type Severity Reaction Status Date / Time codeine Allergy Severe LESS Verified 04/11/20 10:11 [From Tylenol-Codeine #3] RESPONSIVE-SENT TO ER-METABOLIC ENCEPHALAPATHY. hydrocodone Allergy Unknown Unknown Verified 04/11/20 10:11 (taken from ECF list) tramadol [From Ultram] Allergy Unknown Unknown Verified 04/11/20 10:11 (taken from ECF list) erythromycin base Allergy Rash/Hives Verified 04/11/20 10:11 [Erythromycin Base] gentamicin [Gentamicin] Allergy Rash/Hives Verified 04/11/20 10:11 Penicillins Allergy Anaphylaxis Verified 04/11/20 10:11 NARCOTICS AdvReac Severe SENSITIVE Uncoded 04/11/20 10:11 TO NARCOTICS. SEDATIVES AdvReac Severe SENSITIVE Uncoded 04/11/20 10:11 TO SEDATIVES AND NARCOTICS Review of Systems ROS Statement: Those systems with pertinent positive or pertinent negative responses have been documented in the HPI. Review of Systems: CONST: Denies fever EYES: Denies blurry vision ENT: Denies nasal congestion C/V: Denies Chest pain RESP: Denies shortness of breath GI: Denies abdominal pain : Denies dysuria SKIN: Denies rash. MSK: Denies joint pain. NEURO: Denies headache ROS Other: All systems not noted in ROS Statement are negative. Past Medical History Past Medical History: Asthma, Coronary Artery Disease (CAD), Chest Pain / Angina, GERD/Reflux, Hypertension, Hypertension, Neurologic Disorder, Osteoarthritis (OA), Renal Disease, Thyroid Disorder Additional Past Medical History / Comment(s): anemia. vericose veins. pulmonary embolus, DVT. wounds reji legs with. perpheral neuropathy , back and bilat knee spurs History of Any Multi-Drug Resistant Organisms: None Reported Past Surgical History: Hernia Repair, Tonsillectomy, Tubal Ligation, Tubal Ligation Additional Past Surgical History / Comment(s): BLOOD CLOTS REMOVED FROM LEFT LEG Past Anesthesia/Blood Transfusion Reactions: No Reported Reaction Past Psychological History: Panic Disorder - Past Family History Mother Family Medical History: No Reported History Daughter(s) Family Medical History: Cancer Additional Family Medical History / Comment(s): cervical Son(s) Family Medical History: CVA/TIA General Exam - General Exam Comments Initial Comments: General: Appears in no acute distress. HEAD: Normal with no signs of head trauma. EYES: PERRLA, EOMI, conjunctiva normal, no discharge. ENT: Hearing grossly intact, normal oropharynx. RESPIRATORY: Clear breath sounds bilaterally. No wheezes, rales, or rhonchi. No hypoxia on her baseline 2 L nasal cannula. C/V: Irregular rate and rhythm. S1 and S2 auscultated, peripheral pulses 2+ and intact throughout ABD: Abd is soft, nontender, nondistended EXT: Range of motion of all 4 extremities. Patient has per patient chronic left lower extremity Swelling with chronic venous stasis changes. States is typical for her leg. No acute change. SKIN: Left lower extremity chronic skin changes with swelling. NEURO: Alert and oriented 4. No obvious sensory strength deficits. Patient is oriented to person, place, time, why she is here. Limitations: altered mental status Course Vital Signs 05/13/22 05/13/22 05/13/22 15:25 16:49 18:23 Temperature 98.1 F Pulse Rate 69 73 69 Respiratory 18 16 16 Rate Blood Pressure 134/86 138/62 138/92 O2 Sat by Pulse 100 98 97 Oximetry Medical Decision Making - Medical Decision Making Based on the patient's presentation and physical exam, we will obtain screening laboratory studies including checking her sodium level here in the department. We will recheck to the facility to ensure that her left lower extremity is within normal limits. It does not appear she is on any blood thinners at this time as she did have a recent admission to an outside hospital for anemia secondary to postmenopausal bleeding. It is uncertain if she is on her blood thinning medication but states that he may have stopped it. Only other acute complaint at this time is a slight cough. As she has been in the facility for multiple days, we will obtain Covid, flu swabs in addition to the basic laboratory studies. We will also obtain a chest x-ray and screening EKG at this time. Patient was in agreement this plan. We will send off a urine and she does have a chronic indwelling Hager catheter. Vital signs are within normal limits. EKG shows no signs of acute ischemia. It shows chronic atrial fibrillation with chronic left bundle-branch block.Chest x-ray as interpreted by myself reveals no obvious infiltrate. Possible mild pulmonary vascular congestion. Laboratory studies are remarkable for chronic anemia with hemoglobin of 9.2. Patient also has a chronic, cytopenia with a platelet count of 95. She is no longer on bl ood thinners. Patient is mildly hyponatremic to 146. She has an elevated BUN/creatinine at her baseline in the setting of CK D. Patient does have a UTI on urinalysis. Covid influenza negative. On reevaluation, patient's vital signs remained within acceptable limits. We will swab out her Hager catheter for a clean 1. She'll be started on Bactrim for UTI. I updated her and I believe it is safer to be discharged home as she is not altered. I did contact her nursing facility and spoke with the nurse automation test developer who is covering for her and they're in understanding was that she was sent for high sodium and that is all. I updated them on the patient's status and that she'll be transferred back to them. They were in agreement this plan. I will provide the patient with a prescription for Bactrim. I instructed the patient to follow up with their PCP in the next 1-3 days. I explained that the patient should return to the emergency department if they experience any worsening symptoms. Strict return precautions were discussed with the patient. The patient expressed understanding of these instructions. I answered all questions that the patient had. The patient was discharged home in good condition with their prescriptions and follow up information. - Lab Data Result diagrams: 05/13/22 16:28 05/13/22 16:28 Lab Results 05/13/22 05/13/22 05/13/22 Range/Units 16:28 16:28 16:28 WBC 4.8 (3.8-10.6) k/uL RBC 3.20 L (3.80-5.40) m/uL Hgb 9.2 L (11.4-16.0) gm/dL Hct 30.7 L (34.0-46.0) % MCV 95.9 (80.0-100.0) fL MCH 28.8 (25.0-35.0) pg MCHC 30.0 L (31.0-37.0) g/dL RDW 17.2 H (11.5-15.5) % Plt Count 95 L (150-450) k/uL MPV 9.3 Neutrophils % 70 % Lymphocytes % 20 % Monocytes % 5 % Eosinophils % 2 % Basophils % 1 % Neutrophils # 3.4 (1.3-7.7) k/uL Lymphocytes # 1.0 (1.0-4.8) k/uL Monocytes # 0.2 (0-1.0) k/uL Eosinophils # 0.1 (0-0.7) k/uL Basophils # 0.1 (0-0.2) k/uL Hypochromasia Marked Anisocytosis Slight PT 10.1 (9.0-12.0) sec INR 0.9 (<1.2) APTT 22.4 (22.0-30.0) sec Sodium 146 H (137-145) mmol/L Potassium 3.6 (3.5-5.1) mmol/L Chloride 115 H (98-107) mmol/L Carbon Dioxide 30 (22-30) mmol/L Anion Gap 1 mmol/L BUN 46 H (7-17) mg/dL Creatinine 1.98 H (0.52-1.04) mg/dL Est GFR (CKD-EPI)AfAm 29 (>60 ml/min/1.73 sqM) Est GFR (CKD-EPI)NonAf 25 (>60 ml/min/1.73 sqM) Glucose 99 (74-99) mg/dL Plasma Lactic Acid Rc (0.7-2.0) mmol/L Calcium 10.2 (8.4-10.2) mg/dL Total Bilirubin 0.4 (0.2-1.3) mg/dL AST 24 (14-36) U/L ALT 21 (4-34) U/L Alkaline Phosphatase 164 H (38-126) U/L Total Protein 4.8 L (6.3-8.2) g/dL Albumin 2.6 L (3.5-5.0) g/dL Amylase 46 (30-110) U/L Lipase 57 (23-300) U/L Urine Color Urine Appearance (Clear) Urine pH (5.0-8.0) Ur Specific [place] (1.001-1.035) Urine Protein (Negative) Urine Glucose (UA) (Negative) Urine Ketones (Negative) Urine Blood (Negative) Urine Nitrite (Negative) Urine Bilirubin (Negative) Urine Urobilinogen (<2.0) mg/dL Ur Leukocyte Esterase (Negative) Urine RBC (0-5) /hpf Urine WBC (0-5) /hpf Urine WBC Clumps (None) /hpf Amorphous Sediment (None) /hpf Urine Bacteria (None) /hpf Hyaline Casts (0-2) /lpf Urine Mucus (None) /hpf Coronavirus (PCR) (Not Detectd) Influenza Type A RNA (Not Detectd) Influenza Type B (PCR) (Not Detectd) 05/13/22 05/13/22 05/13/22 Range/Units 16:28 16:46 16:46 WBC (3.8-10.6) k/uL RBC (3.80-5.40) m/uL Hgb (11.4-16.0) gm/dL Hct (34.0-46.0) % MCV (80.0-100.0) fL MCH (25.0-35.0) pg MCHC (31.0-37.0) g/dL RDW (11.5-15.5) % Plt Count (150-450) k/uL MPV Neutrophils % % Lymphocytes % % Monocytes % % Eosinophils % % Basophils % % Neutrophils # (1.3-7.7) k/uL Lymphocytes # (1.0-4.8) k/uL Monocytes # (0-1.0) k/uL Eosinophils # (0-0.7) k/uL Basophils # (0-0.2) k/uL Hypochromasia Anisocytosis PT (9.0-12.0) sec INR (<1.2) APTT (22.0-30.0) sec Sodium (137-145) mmol/L Potassium (3.5-5.1) mmol/L Chloride (98-107) mmol/L Carbon Dioxide (22-30) mmol/L Anion Gap mmol/L BUN (7-17) mg/dL Creatinine (0.52-1.04) mg/dL Est GFR (CKD-EPI)AfAm (>60 ml/min/1.73 sqM) Est GFR (CKD-EPI)NonAf (>60 ml/min/1.73 sqM) Glucose (74-99) mg/dL Plasma Lactic Acid Rc 0.7 (0.7-2.0) mmol/L Calcium (8.4-10.2) mg/dL Total Bilirubin (0.2-1.3) mg/dL AST (14-36) U/L ALT (4-34) U/L Alkaline Phosphatase (38-126) U/L Total Protein (6.3-8.2) g/dL Albumin (3.5-5.0) g/dL Amylase (30-110) U/L Lipase (23-300) U/L Urine Color Urine Appearance (Clear) Urine pH (5.0-8.0) Ur Specific [place] (1.001-1.035) Urine Protein (Negative) Urine Glucose (UA) (Negative) Urine Ketones (Negative) Urine Blood (Negative) Urine Nitrite (Negative) Urine Bilirubin (Negative) Urine Urobilinogen (<2.0) mg/dL Ur Leukocyte Esterase (Negative) Urine RBC (0-5) /hpf Urine WBC (0-5) /hpf Urine WBC Clumps (None) /hpf Amorphous Sediment (None) /hpf Urine Bacteria (None) /hpf Hyaline Casts (0-2) /lpf Urine Mucus (None) /hpf Coronavirus (PCR) Not Detected (Not Detectd) Influenza Type A RNA Not Detected (Not Detectd) Influenza Type B (PCR) Not Detected (Not Detectd) 05/13/22 Range/Units 17:34 WBC (3.8-10.6) k/uL RBC (3.80-5.40) m/uL Hgb (11.4-16.0) gm/dL Hct (34.0-46.0) % MCV (80.0-100.0) fL MCH (25.0-35.0) pg MCHC (31.0-37.0) g/dL RDW (11.5-15.5) % Plt Count (150-450) k/uL MPV Neutrophils % % Lymphocytes % % Monocytes % % Eosinophils % % Basophils % % Neutrophils # (1.3-7.7) k/uL Lymphocytes # (1.0-4.8) k/uL Monocytes # (0-1.0) k/uL Eosinophils # (0-0.7) k/uL Basophils # (0-0.2) k/uL Hypochromasia Anisocytosis PT (9.0-12.0) sec INR (<1.2) APTT (22.0-30.0) sec Sodium (137-145) mmol/L Potassium (3.5-5.1) mmol/L Chloride (98-107) mmol/L Carbon Dioxide (22-30) mmol/L Anion Gap mmol/L BUN (7-17) mg/dL Creatinine (0.52-1.04) mg/dL Est GFR (CKD-EPI)AfAm (>60 ml/min/1.73 sqM) Est GFR (CKD-EPI)NonAf (>60 ml/min/1.73 sqM) Glucose (74-99) mg/dL Plasma Lactic Acid Rc (0.7-2.0) mmol/L Calcium (8.4-10.2) mg/dL Total Bilirubin (0.2-1.3) mg/dL AST (14-36) U/L ALT (4-34) U/L Alkaline Phosphatase (38-126) U/L Total Protein (6.3-8.2) g/dL Albumin (3.5-5.0) g/dL Amylase (30-110) U/L Lipase (23-300) U/L Urine Color Yellow Urine Appearance Turbid H (Clear) Urine pH 5.5 (5.0-8.0) Ur Specific [place] 1.017 (1.001-1.035) Urine Protein 1+ H (Negative) Urine Glucose (UA) Negative (Negative) Urine Ketones Negative (Negative) Urine Blood Large H (Negative) Urine Nitrite Negative (Negative) Urine Bilirubin Negative (Negative) Urine Urobilinogen <2.0 (<2.0) mg/dL Ur Leukocyte Esterase Large H (Negative) Urine RBC >182 H (0-5) /hpf Urine WBC >182 H (0-5) /hpf Urine WBC Clumps Many H (None) /hpf Amorphous Sediment Occasional H (None) /hpf Urine Bacteria Moderate H (None) /hpf Hyaline Casts 26 H (0-2) /lpf Urine Mucus Few H (None) /hpf Coronavirus (PCR) (Not Detectd) Influenza Type A RNA (Not Detectd) Influenza Type B (PCR) (Not Detectd) - EKG Data -: EKG Interpreted by Me EKG Comments: 12-lead Electrocardiogram Interpretation Note EKG was reviewed and interpreted by myself. 12-lead ECG performed at 1529 is interpreted by me as revealing atrial fibrillation at a rate of 70 beats per minute. [place] is normal. QRS duration is 148 ms, QTc is 473 ms, patient has a chronic left bundle branch block.. There were no acute ST or T wave abnormalities to suggest myocardial ischemia or injury. R wave progression across the precordium was satisfactory. By my interpretation this EKG is non- diagnostic for acute ischemia. When compared with EKG from October 2019, no significant change. Disposition Clinical Impression: UTI (urinary tract infection) Disposition: HOME SELF-CARE Condition: Good Prescriptions: Sulfamethox-Tmp 800-160Mg [Bactrim DS 800-160 mg] 1 tab PO Q12HR 7 Days #14 tab Is patient prescribed a controlled substance at d/c from ED?: No Referrals: Mauri Berman MD [Primary Care Provider] - 1-2 days Time of Disposition: 18:20
[2022-05-13 16:43] LABS: Anisocytosis Slight; Basophils # (A) 0.1 k/uL (0-0.2); Basophils % (A) 1 %; Eosinophils # (A) 0.1 k/uL (0-0.7); Eosinophils % (A) 2 %; HCT 30.7 % (34.0-46.0); HGB 9.2 gm/dL (11.4-16.0); Hypochromasia Marked; Lymphocytes % (A) 20 %; MCH 28.8 pg (25.0-35.0); MCV 95.9 fL (80.0-100.0); Mean Platelet Volume 9.3; Monocytes # (A) 0.2 k/uL (0-1.0); Monocytes % (A) 5 %; Neutrophils # (A) 3.4 k/uL (1.3-7.7); Neutrophils % (A) 70 %; RDW 17.2 % (11.5-15.5); WBC 4.8 k/uL (3.8-10.6)
[2022-05-13 16:45] LABS: Platelet Count 95 k/uL (150-450)
[2022-05-13 16:50] VITALS: RESP 16
[2022-05-13 16:54] LABS: Albumin 2.6 g/dL (3.5-5.0); Calcium 10.2 mg/dL (8.4-10.2); Potassium 3.6 mmol/L (3.5-5.1); Total Bilirubin 0.4 mg/dL (0.2-1.3); Total Protein 4.8 g/dL (6.3-8.2)
--- NOTE | 2022-05-13 17:14 | XR ---
EXAMINATION TYPE: XR chest 2V DATE OF EXAM: 05/13/2022 4:55 PM COMPARISON: Chest radiographs from 10/15/2019 TECHNIQUE: XR chest 2V Frontal and lateral views of the chest. CLINICAL INDICATION:Female, 71 years old with history of abdominal pain; FINDINGS: Lungs/Pleura: Low lung volumes are present. There is no evidence of pleural effusion, focal consolida tion, or pneumothorax. Pulmonary vascularity: Unremarkable. Heart/mediastinum: Cardiomediastinal silhouette is enlarged and stable. Musculoskeletal: No acute osseous pathology. IMPRESSION: 1. Low lung volumes with diffuse haziness could represent only vascular congestion in the setting of congestive heart failure versus atelectasis in the setting of low lung volumes. 2. Mild cardiomegaly.
[2022-05-13 17:17] LABS: INR 0.9 (<1.2); Partial Thromboplastin Time 22.4 sec (22.0-30.0); Prothrombin Time 10.1 sec (9.0-12.0)
[2022-05-13 18:24] VITALS: BP 138/92; PULSE 69
[2022-05-13 18:31] LABS: Amorphous Sediment,Urine Occasional /hpf; Appearance,Urine Turbid (Clear); Bacteria,Urine Moderate /hpf; Bilirubin,Urine Negative (Negative); Blood,Urine Large (Negative); Color,Urine Yellow; Glucose,Urine (UA) Negative (Negative); Hyaline Casts,Urine 26 /lpf (0-2); Ketones,Urine Negative (Negative); Leukocyte Esterase,Urine Large (Negative); Mucus,Urine Few /hpf; Nitrite,Urine Negative (Negative); PH, Urine 5.5 (5.0-8.0); Protein,Urine 1+ (Negative); RBC,Urine >182 /hpf (0-5); Specific Gravity,Urine 1.017 (1.001-1.035); Urobilinogen,Urine <2.0 mg/dL (<2.0); WBC,Urine >182 /hpf (0-5)
[2022-05-13] MEDS ORDERED: SULFAMETHOX-TMP 800-160MG 1 EACH TAB PO STA (18:36)
== END 2022-05-13 22:29 | disposition home or self-care (01) ==
LOC: EC 15:24
DX: N39.0 Urinary tract infection, site not specified (principal); I48.91 Unspecified atrial fibrillation; I25.10 Atherosclerotic heart disease of native coronary artery without angina pectoris; I10 Essential (primary) hypertension; M19.90 Unspecified osteoarthritis, unspecified site; E11.9 Type 2 diabetes mellitus without complications; J44.9 Chronic obstructive pulmonary disease, unspecified; Z86.718 Personal history of other venous thrombosis and embolism; Z86.711 Personal history of pulmonary embolism; Z20.822 Contact with and (suspected) exposure to COVID-19; Z88.5 Allergy status to narcotic agent; Z88.1 Allergy status to other antibiotic agents; Z88.0 Allergy status to penicillin; Z79.899 Other long term (current) drug therapy; Z79.51 Long term (current) use of inhaled steroids; Z79.4 Long term (current) use of insulin
CPT/HCPCS: 36415; 71046; 80053; 81001; 82150; 83605; 83690; 85025; 85610; 85730; 87086; 87502; 87635; 93005; 99285

== ENCOUNTER → 2022-06-12 | Day surgery (SDC) | payer MEDICARE, OTHER ==
[2022-06-11 15:24] VITALS: BMI 48.8
[2022-06-12 09:15] LABS: Glucose,Whole Blood 76 mg/dL (70-110)
== END ==
LOC: CATHCVL 09:00
PROVIDERS: ATTEND Family Medicine
DX: L03.116 Cellulitis of left lower limb (principal)
CPT/HCPCS: 36410; 76937; C1751